=== PATIENT | male | born 1940 | race Hispanic/Latino ===

== ENCOUNTER 2019-07-09 12:33 | Inpatient (IN) | payer MEDICARE ==
[2019-07-09] MEDS ORDERED: ASPIRIN 325 MG TAB PO ONE (12:53)
--- NOTE | 2019-07-09 12:58 | Event Note ---
ED Screening Note Date of service: 07/09/19 Time: 12:53 ED Screening Note: 78 y/o male comes in by referral by Dr. Gatica. reports that he has been having SOB and has been afib. Patient was recently in ICU. This initial assessment/diagnostic orders/clinical plan/treatment(s) is/are subj ect to change based on patients health status, clinical progression and re- assessment by fellow clinical providers in the ED. Further treatment and workup at subsequent clinical providers discretion. Patient/guardian urged not to elope from the ED as their condition may be serious if not clinically assessed and managed. Initial orders include: Patient is herrera lips are purple patient is in SVT
[2019-07-09] MEDS ORDERED: dilTIAZem 25 MG/5 ML INJ IV ONE ×2 (13:07→13:41)
[2019-07-09] MEDS ORDERED: dilTIAZem 50 MG/10 ML INJ IV ONE ×2 (13:30→15:00)
--- NOTE | 2019-07-09 13:30 | XRay Report ---
CHEST 1 VIEW INDICATION: Chest Pain. COMPARISON: 04/24/2019 FINDINGS: Support devices: None. Heart: Stable mild cardiomegaly. Lungs/Pleura: No acute air space or interstitial disease. Additional findings: None. IMPRESSION: Stable chest. Signer Name: Dayne Jones MD Signed: 07/09/2019 1:26 PM Workstation Name: [id number]
[2019-07-09 13:34] LABS: Basophils % (Auto) 0.3 % (0.0-1.8); Hematocrit 47.7 % (35.5-45.6); Hemoglobin 15.9 gm/dl (11.8-15.2); Lymphocytes # (Auto) 0.7 K/mm3 (1.2-5.4); Lymphocytes % (Auto) 5.2 % (13.4-35.0); Mean Corpuscular HGB Conc 33 % (32-34); Mean Corpuscular Volume 96 fl (84-94); Monocytes # (Auto) 0.7 K/mm3 (0.0-0.8); Monocytes % (Auto) 5.2 % (0.0-7.3); Platelet Count 181 K/mm3 (140-440); Red Blood Count 4.97 M/mm3 (3.65-5.03)
[2019-07-09 13:48] LABS: Partial Thromboplastin Time 33.2 Sec. (24.2-36.6)
[2019-07-09 13:55] LABS: INR 5.04 (0.87-1.13)
[2019-07-09 13:57] LABS: Calcium 9.5 mg/dL (8.4-10.2)
[2019-07-09] MEDS ORDERED: dilTIAZem/D5W 100 MG/100 ML BAG IV SCH (14:00)
[2019-07-09 14:05] LABS: Free T4 (Free Thyroxine) 1.52 ng/dL (0.76-1.46)
--- NOTE | 2019-07-09 14:27 | Emergency Department Report ---
ED Palpitations HPI - General Chief Complaint: Arrhythmia/Palpitations Stated Complaint: AFIB Time Seen by Provider: 07/09/19 13:06 Source: patient Mode of arrival: Wheelchair Limitations: No Limitations - History of Present Illness Initial Comments: 78-year-old male with a past medical history of CHF, atrial fibrillation, pulmonary embolism, DVT, hypertension, CKD, hyperlipidemia, [place] filter placement, currently on Coumadin presents to the hospital with complaints of shortness of breath and palpitations. 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 Patient was found to be in A. fib with RVR rate 151 and was sent to the ER for evaluation. Patient has been compliant with his medications. He states he has been having chronic intermittent shortness of breath and palpitations since discharge from the hospital in April. He denies chest pain, fever, or calf tenderness. Patient has chronic leg edema that is also unchanged. Patient denies orthopnea or PND however, difficulty sleeping last night due to persistent dry cough. Patient was reports that he has intermittent wheezing due to "allergies" and takes an inhaler as needed but denies history of asthma or COPD. Media Clerk: Dr. Anthony with [facility] - Related Data Home Medications Medication Instructions Recorded Confirmed Last Taken AtorvaSTATin [Lipitor] 40 mg PO QHS 04/25/19 07/09/19 Unknown Warfarin [Coumadin] 5 mg PO QDAY 04/25/19 07/09/19 Unknown Bumetanide [Bumex 1 mg tab] 2 mg PO BID 07/09/19 07/09/19 Unknown Cetirizine HCl [ZyrTEC 10mg cap] 10 mg PO QDAY 07/09/19 07/09/19 Unknown Cholecalciferol (Vitamin D3) 5,000 unit PO 1XW 07/09/19 07/09/19 Unknown [Vitamin D3] Metoprolol [Lopressor TAB] 50 mg PO QHS 07/09/19 07/09/19 Unknown Tiotropium [place] [Spiriva] 18 mcg IH DAILY 07/09/19 07/09/19 Unknown predniSONE [Deltasone] 30 mg PO QDAY 07/09/19 07/09/19 Unknown Previous Rx's Medication Instructions Recorded Last Taken Type Metoprolol Xl [Toprol Xl] 100 mg PO BID #60 tablet 05/02/19 Unknown Rx Allergies Allergy/AdvReac Type Severity Reaction Status Date / Time No Known Allergies Allergy Unverified 04/10/19 15:48 ED Review of Systems ROS: Stated complaint: AFIB Other details as noted in HPI ED Past Medical Hx - Past Medical History Previous Medical History?: Yes Hx Hypertension: Yes Hx Heart Attack/AMI: No Hx Congestive Heart Failure: Yes Hx Diabetes: No Hx Deep Vein Thrombosis: Yes Hx Pulmonary Embolism: Yes Hx GERD: No Hx Liver Disease: No Hx Renal Disease: No Hx Arthritis: Yes (hands) Hx Headaches / Migraines: No Hx Kidney Stones: No Hx Asthma: No Hx COPD: No Hx Tuberculosis: No Hx HIV: No Additional medical history: CKD, hyperlipidemia, A-fib - Surgical History Past Surgical History?: Yes Hx Coronary Stent: No Hx Open Heart Surgery: No Hx Pacemaker: No Hx Internal Defibrillator: No Hx Cholecystectomy: No Hx Appendectomy: No Hx Breast Surgery: No Additional Surgical History: [place] filter - Social History Smoking Status: Former Smoker - Medications Home Medications: Home Medications Medication Instructions Recorded Confirmed Last Taken Type AtorvaSTATin [Lipitor] 40 mg PO QHS 04/25/19 07/09/19 Unknown History Warfarin [Coumadin] 5 mg PO QDAY 04/25/19 07/09/19 Unknown History Metoprolol Xl [Toprol Xl] 100 mg PO BID #60 tablet 05/02/19 07/09/19 Unknown Rx Bumetanide [Bumex 1 mg tab] 2 mg PO BID 07/09/19 07/09/19 Unknown History Cetirizine HCl [ZyrTEC 10mg cap] 10 mg PO QDAY 07/09/19 07/09/19 Unknown History Cholecalciferol (Vitamin D3) 5,000 unit PO 1XW 07/09/19 07/09/19 Unknown History [Vitamin D3] Metoprolol [Lopressor TAB] 50 mg PO QHS 07/09/19 07/09/19 Unknown History Tiotropium [place] [Spiriva] 18 mcg IH DAILY 07/09/19 07/09/19 Unknown History predniSONE [Deltasone] 30 mg PO QDAY 07/09/19 07/09/19 Unknown History ED Physical Exam - General Limitations: No Limitations ED Course Vital Signs 07/09/19 07/09/19 07/09/19 12:42 13:05 13:28 Temperature 97.5 F L 98.2 F Pulse Rate 46 L 102 H 159 H Respiratory 24 17 Rate Blood Pressure 134/104 Blood Pressure 129/86 [Right] O2 Sat by Pulse 93 87 99 Oximetry 07/09/19 07/09/19 07/09/19 13:32 13:37 14:00 Temperature Pulse Rate 162 H 132 H 128 H Respiratory 21 Rate Blood Pressure 153/100 131/98 122/78 Blood Pressure [Right] O2 Sat by Pulse 94 Oximetry 07/09/19 07/09/19 07/09/19 14:20 15:00 16:00 Temperature Pulse Rate 140 H 127 H 140 H Respiratory 19 15 Rate Blood Pressure 116/71 105/79 131/104 Blood Pressure [Right] O2 Sat by Pulse 98 96 Oximetry - Consultations Consultation #1: 07/09/19 14:37 Taylor Crisostomo with [facility] in ed to eval pt. Consultation #2: 07/09/19 15:23 Dr Kelley came to ed, rec to d/c cardizem and start amiodarone bolus followed by rich ED Medical Decision Making - Lab Data Result diagrams: 07/09/19 13:30 07/09/19 12:53 Lab Results 07/09/19 07/09/19 07/09/19 Range/Units 12:53 13:05 13:05 WBC (4.5-11.0) K/mm3 RBC (3.65-5.03) M/mm3 Hgb (11.8-15.2) gm/dl Hct (35.5-45.6) % MCV (84-94) fl MCH (28-32) pg MCHC (32-34) % RDW (13.2-15.2) % Plt Count (140-440) K/mm3 Lymph % (Auto) (13.4-35.0) % [place] % (Auto) (0.0-7.3) % Eos % (Auto) (0.0-4.3) % Baso % (Auto) (0.0-1.8) % Lymph # (1.2-5.4) K/mm3 [place] # (0.0-0.8) K/mm3 Eos # (0.0-0.4) K/mm3 Baso # (0.0-0.1) K/mm3 Seg Neutrophils % (40.0-70.0) % Seg Neutrophils # (1.8-7.7) K/mm3 PT (12.2-14.9) Sec. INR (0.87-1.13) APTT (24.2-36.6) Sec. Sodium 143 (137-145) mmol/L Potassium 3.5 L (3.6-5.0) mmol/L Chloride 99.8 (98-107) mmol/L Carbon Dioxide 23 (22-30) mmol/L Anion Gap 24 mmol/L BUN 53 H (9-20) mg/dL Creatinine 2.3 H (0.8-1.5) mg/dL Estimated GFR 28 ml/min BUN/Creatinine Ratio 23 % Glucose 107 H (75-100) mg/dL Calcium 9.5 (8.4-10.2) mg/dL Magnesium 2.20 (1.7-2.3) mg/dL Troponin T 0.014 (0.00-0.029) ng/mL NT-Pro-B Natriuret Pep 9770 H (0-900) pg/mL TSH 5.390 H (0.270-4.200) mlU/mL Free T4 1.52 H (0.76-1.46) ng/dL 07/09/19 07/09/19 Range/Units 13:30 13:30 WBC 13.1 H (4.5-11.0) K/mm3 RBC 4.97 (3.65-5.03) M/mm3 Hgb 15.9 H (11.8-15.2) gm/dl Hct 47.7 H (35.5-45.6) % MCV 96 H (84-94) fl MCH 32 (28-32) pg MCHC 33 (32-34) % RDW 16.0 H (13.2-15.2) % Plt Count 181 (140-440) K/mm3 Lymph % (Auto) 5.2 L (13.4-35.0) % [place] % (Auto) 5.2 (0.0-7.3) % Eos % (Auto) 0.0 (0.0-4.3) % Baso % (Auto) 0.3 (0.0-1.8) % Lymph # 0.7 L (1.2-5.4) K/mm3 [place] # 0.7 (0.0-0.8) K/mm3 Eos # 0.0 (0.0-0.4) K/mm3 Baso # 0.0 (0.0-0.1) K/mm3 Seg Neutrophils % 89.3 H (40.0-70.0) % Seg Neutrophils # 11.7 H (1.8-7.7) K/mm3 PT 48.0 H (12.2-14.9) Sec. INR 5.04 H* (0.87-1.13) APTT 33.2 (24.2-36.6) Sec. Sodium (137-145) mmol/L Potassium (3.6-5.0) mmol/L Chloride (98-107) mmol/L Carbon Dioxide (22-30) mmol/L Anion Gap mmol/L BUN (9-20) mg/dL Creatinine (0.8-1.5) mg/dL Estimated GFR ml/min BUN/Creatinine Ratio % Glucose (75-100) mg/dL Calcium (8.4-10.2) mg/dL Magnesium (1.7-2.3) mg/dL Troponin T (0.00-0.029) ng/mL NT-Pro-B Natriuret Pep (0-900) pg/mL TSH (0.270-4.200) mlU/mL Free T4 (0.76-1.46) ng/dL - EKG Data -: EKG Interpreted by Me (svt) EKG shows normal: ST-T waves (no stemi) Rate: tachycardia (145) - Radiology Data Radiology results: report reviewed CHEST 1 VIEW INDICATION: Chest Pain. COMPARISON: 04/24/2019 FINDINGS: Support devices: None. Heart: Stable mild cardiomegaly. Lungs/Pleura: No acute air space or interstitial disease. Additional findings: None. IMPRESSION: Stable chest. - Medical Decision Making Patient presents to the hospital with A. fib with RVR and shortness of breath. Chest x-ray read as negative but possibility of pulmonary congestion. Karis Crisostomo came to the ED to evaluate patient. Patient has a supratherapeutic INR level. Hospitalist informed for admission as per jerad Cherry d/maikel since not effective and amiodarone started instead - Differential Diagnosis SVT, A. fib, arrhythmia, thyroid disease, anemia Critical Care Time: Yes Critical care time in (mins) excluding proc time.: 35 Critical care attestation.: If time is entered above; I have spent that time in minutes in the direct care of this critically ill patient, excluding procedure time. ED Disposition Clinical Impression: Atrial fibrillation with RVR, Supratherapeutic INR, Presence of IVC filter, SOB (shortness of breath) Disposition: OP ADMIT IP TO THIS HOSP Is pt being admited?: Yes Condition: Stable Time of Disposition: 14:38 (Dr Curran/hosp)
--- NOTE | 2019-07-09 14:43 | Consultation ---
History of Present Illness Consult date: 07/09/19 Requesting physician: TERRIE ANAND Consult reason: atrial fibrillation History of present illness: The pt is a 78 YO male with a past medical history of persistent atrial fibrillation, DVT and PE, IVC filter in place, anticoagulated with Coumadin, BLE edema, CVI, HTN, HLP, CKD (followed by Dr. Aly), suspected COPD (followed by Dr. Fermin), obesity, ongoing tobacco use. He is followed in our office by Dr. Pena. He presented to our office today and was seen by Dr. Gatica. He c/o dyspnea and was found to be in rapid atrial fibrillation and thus was referred to ED for further eval/management. Following arrival to ED, pt noted to be in AFib with HR 140s - 150s. He was initiated on cardizem gtt. Of note, pt was discharged from [facility] on 05/02/2019 following eval/management of new onset atrial fibrillation. He was discharged home on Cardizem CD 300mg daily, amio 200mg BID, lopressor 100mg BID, lasix 40mg daily, Coumadin. He states that for approx 4 weeks following discharge, he felt great. At a follow u p appt in our office in 05/2019, he was noted to have AFib with SVR. Cardizem and amio were discontinued and lopressor dosage was reduced. Since May, pt reports that he has been experiencing progressively worsening SOB, FISCHER and intermittent palpitations. 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 Fermin, last week for "seasonal allergies" and was given some inhalers. His symptoms did not improve with the inhalers. Pt denies any occurrence of chest pain, n/v, diaphoresis, dizziness or syncope. Echo done 04/2019 showed EF 50-55%, mild to mod LVH. Past History Past Medical History: other (as per HPI) Medications and Allergies Allergies Allergy/AdvReac Type Severity Reaction Status Date / Time No Known Allergies Allergy Unverified 04/10/19 15:48 Home Medications Medication Instructions Recorded Confirmed Last Taken Type AtorvaSTATin [Lipitor] 40 mg PO QHS 04/25/19 04/25/19 Unknown History Warfarin [Coumadin] 5 mg PO QDAY 04/25/19 04/25/19 Unknown History Amiodarone [Cordarone 200 MG TAB] 200 mg PO BID #60 tablet 05/02/19 Unknown Rx Enoxaparin Sodium [Lovenox] 120 mg SQ BID #14 syringe 05/02/19 Unknown Rx Furosemide [Lasix TAB] 40 mg PO DAILY #60 tablet 05/02/19 Unknown Rx Metoprolol Xl [Toprol Xl] 100 mg PO BID #60 tablet 05/02/19 Unknown Rx dilTIAZem CD [Cardizem Cd] 300 mg PO QDAY #30 cap 05/02/19 Unknown Rx Active Meds: Active Medications Diltiazem HCl (Cardizem) 25 mg IV ONCE ONE Stop: 07/09/19 15:01 Diltiazem HCl (Cardizem/D5w 100mg/100ml) 100 mg in 100 mls @ 5 mls/hr IV TITR MARIE; Protocol Last Admin: 07/09/19 14:20 Dose: 5 mg/hr, 5 mls/hr Documented by: Review of Systems Constitutional: no fever, no chills, no sweats Ears, nose, mouth and throat: no ear pain, no nose pain, no sinus pressure, no sinus pain Cardiovascular: palpitations, shortness of breath, dyspnea on exertion, no chest pain, no orthopnea, no rapid/irregular heart beat, no edema, no syncope, no lightheadedness, no leg edema Respiratory: shortness of breath, dyspnea on exertion, no cough, no congestion, no wheezing, no pain on inspiration Gastrointestinal: no abdominal pain, no nausea, no vomiting, no diarrhea, no constipation, no change in bowel habits Genitourinary Male: no dysuria, no hematuria, no flank pain, no discharge, no urinary frequency, no urinary hesitancy Musculoskeletal: no neck stiffness, no neck pain, no shooting arm pain, no arm numbness/tingling, no low back pain, no shooting leg pain Integumentary: no rash, no pruritis, no redness, no sores, no wounds Neurological: no head injury, no paralysis, no weakness, no parathesias, no numbness, no tingling, no seizures, no syncope Psychiatric: no anxiety Endocrine: no cold intolerance, no heat intolerance Hematologic/Lymphatic: no easy bruising, no easy bleeding Physical Examination Vital Signs Temp Pulse Resp BP Pulse Ox 98.2 F 102 H 24 129/86 87 07/09/19 13:05 07/09/19 13:05 07/09/19 13:05 07/09/19 13:05 07/09/19 13:05 General appearance: no acute distress HEENT: Positive: PERRL, Normocephaly, Mucus Membranes Moist Neck: Positive: neck supple, trachea midline Cardiac: Positive: irregularly irregular, S1/S2, Tachycardia Lungs: Positive: Decreased Breath Sounds, Rales (bibasilar) Neuro: Positive: Grossly Intact Abdomen: Negative: Tender Skin: Negative: Rash Musculoskeletal: No Pain Extremities: Absent: edema Results 07/09/19 13:30 07/09/19 12:53 Coagulation 07/09/19 Range/Units 13:30 PT 48.0 H (12.2-14.9) Sec. INR 5.04 H* (0.87-1.13) APTT 33.2 (24.2-36.6) Sec. CBC 07/09/19 Range/Units 13:30 WBC 13.1 H (4.5-11.0) K/mm3 RBC 4.97 (3.65-5.03) M/mm3 Hgb 15.9 H (11.8-15.2) gm/dl Hct 47.7 H (35.5-45.6) % Plt Count 181 (140-440) K/mm3 Lymph # 0.7 L (1.2-5.4) K/mm3 [place] # 0.7 (0.0-0.8) K/mm3 Eos # 0.0 (0.0-0.4) K/mm3 Baso # 0.0 (0.0-0.1) K/mm3 Comprehensive Metabolic Panel 07/09/19 Range/Units 12:53 Sodium 143 (137-145) mmol/L Potassium 3.5 L (3.6-5.0) mmol/L Chloride 99.8 (98-107) mmol/L Carbon Dioxide 23 (22-30) mmol/L BUN 53 H (9-20) mg/dL Creatinine 2.3 H (0.8-1.5) mg/dL Glucose 107 H (75-100) mg/dL Calcium 9.5 (8.4-10.2) mg/dL - Imaging and Cardiology Echo: report reviewed (04/2019 showed EF 50-55%, mild to mod LVH. ) EKG: report reviewed, image reviewed EKG interpretations - Telemetry EKG Rhythm: Atrial Fibrillation - EKG Supraventricular dysrhythmia: atrial fibrillation Assessment and Plan Persistent atrial fibrillation with RVR Optimize HR - d/c cardizem gtt and initiate IV amio. Resume home lopressor. Hold home coumadin given supratherapeutic INR and plan to resume for target INR 2-3. Acute heart failure with preserved ejection fraction Echo done 04/2019 showed EF 50-55%, mild to mod LVH. Initiate cautious IV diuresis. Monitor renal indices. Supratherapeutic INR INR 5.04 on admission. No s/s bleeding. Pt denies any recent abx use. Repeat INR. Hold coumadin and plan to resume for target INR 2-3. Leukocytosis Afebrile. Pt denies any recent PO steroid use. Obtain blood cultures. 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 Followed by Dr. Aly. Serum Cr appears to be at baseline. History of DVT / History of pulmonary embolism Anticoagulated with coumadin. S/p IVC filter. Hold coumadin and plan to resume for target INR 2-3. HTN Stable. Resume home lopressor. Hyperlipidemia Resume home statin. ? COPD / Tobacco use Followed by Dr. Fermin. Elevated TSH Further eval/management per primary. The patient has been seen in conjunction with Dr. Grier who agrees with the assessment and plan of care.
--- NOTE | 2019-07-09 15:03 | History and Physical Report ---
History of Present Illness Chief complaint: I am short of breath and my heart is beating fast History of present illness: 78 YO Male with HTN, DVT/PE S/P IVC Filter Placement, Atrial Fib on Therapeutic Anticoagulation, CKD 3, Obesity, HLD presents to ED for evaluation. Patient states that he has experienced shortness of breath and chest palpitations over the past 1 day with persistently worsening symptoms over the same timeframe. 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 Patient instructed to seek further care at [facility]. Patient transported to [facility] for further evaluation and care. Patient seen and evaluated in the emergency department. Lab and imaging studies reviewed. Patient acknowledges dyspnea on exertion as well as dyspnea at rest. Patient found to have atrial fibrillation with rapid ventricular response and was treated with Cardizem drip. Cardiology consult placed in the emergency department. Patient admitted to telemetry and treated with rate control as per cardiology team. Patient denies fever, chills, chest pain, syncope, productive cough, trauma, skin rash, productive cough, known ill contacts. Prior admission on 04/24/2019 reviewed. All medication listed at time of admission has been reconciled. Advanced care planning conducted in ED. Past History Past Medical History: atrial fib, hypertension, hyperlipidemia, other (as per HPI) Past Surgical History: Other ([place] filter placement) Social history: , lives with family. denies: smoking, alcohol abuse, prescription drug abuse Family history: CAD, hypertension Medications and Allergies Allergies Allergy/AdvReac Type Severity Reaction Status Date / Time No Known Allergies Allergy Unverified 04/10/19 15:48 Home Medications Medication Instructions Recorded Confirmed Last Taken Type AtorvaSTATin [Lipitor] 40 mg PO QHS 04/25/19 04/25/19 Unknown History Warfarin [Coumadin] 5 mg PO QDAY 04/25/19 04/25/19 Unknown History Amiodarone [Cordarone 200 MG TAB] 200 mg PO BID #60 tablet 05/02/19 Unknown Rx Enoxaparin Sodium [Lovenox] 120 mg SQ BID #14 syringe 05/02/19 Unknown Rx Furosemide [Lasix TAB] 40 mg PO DAILY #60 tablet 05/02/19 Unknown Rx Metoprolol Xl [Toprol Xl] 100 mg PO BID #60 tablet 01/24/20 Unknown Rx dilTIAZem CD [Cardizem Cd] 300 mg PO QDAY #30 cap 05/02/19 Unknown Rx Active Meds: Active Medications Diltiazem HCl (Cardizem/D5w 100mg/100ml) 100 mg in 100 mls @ 5 mls/hr IV TITR MARIE; Protocol Last Admin: 07/09/19 14:20 Dose: 5 mg/hr, 5 mls/hr Documented by: Review of Systems Constitutional: no weight loss, no weight gain, no fever, no chills, no malaise, no lethargy Ears, nose, mouth and throat: no ear pain, no ear discharge, no tinnitis, no decreased hearing, no nose pain, no nasal congestion Cardiovascular: palpitations, shortness of breath, dyspnea on exertion, decreased exercise tolerance, no chest pain, no edema, no syncope, no paroxysmal nocturnal dyspnea Respiratory: no cough, no cough with sputum, no excessive sputum Gastrointestinal: no abdominal pain, no nausea, no vomiting, no diarrhea Genitourinary Male: no hematuria, no flank pain, no discharge, no urinary frequency, no urinary hesitancy Rectal: no pain, no incontinence, no bleeding Musculoskeletal: no neck stiffness, no neck pain, no shooting arm pain, no arm numbness/tingling, no low back pain Integumentary: no rash, no pruritis, no redness, no sores, no wounds Neurological: no transient paralysis, no paralysis, no weakness, no parathesias, no numbness Psychiatric: no anxiety, no memory loss, no change in sleep habits, no sleep disturbances, no insomnia, no hypersomnia Endocrine: no cold intolerance, no heat intolerance, no polyphagia, no excessive thirst, no polydipsia, no polyuria Hematologic/Lymphatic: no easy bruising, no easy bleeding, no lymphadenopathy, no lymphedema Allergic/Immunologic: no urticaria, no allergic rhinitis, no wheezing, no persistent infections, no anaphylaxis Exam - Constitutional Vitals: Temp Pulse Resp BP Pulse Ox 98.2 F 140 H 24 116/71 87 07/09/19 13:05 07/09/19 14:20 07/09/19 13:05 07/09/19 14:20 07/09/19 13:05 General appearance: Present: mild distress - EENT Eyes: Present: PERRL ENT: hearing intact, clear oral mucosa - Neck Neck: Present: supple, normal ROM - Respiratory Respiratory effort: normal Respiratory: bilateral: CTA - Cardiovascular Rhythm: other (Tachycardia) Heart Sounds: Present: S1 & S2. Absent: rub, click - Extremities Extremities: pulses symmetrical, No edema Peripheral Pulses: within normal limits - Abdominal General gastrointestinal: Present: soft, non-tender, non-distended, normal bowel sounds Male genitourinary: Present: normal - Integumentary Integumentary: Present: clear, warm, dry - Musculoskeletal Musculoskeletal: gait normal, strength equal bilaterally - Psychiatric Psychiatric: appropriate mood/affect, intact judgment & insight - Neurologic Neurologic: CNII-XII intact, moves all extremities Results - Labs CBC & Chem 7: 07/09/19 13:30 07/09/19 12:53 Labs: Abnormal lab results 07/09/19 07/09/19 07/09/19 Range/Units 12:53 13:05 13:05 WBC (4.5-11.0) K/mm3 Hgb (11.8-15.2) gm/dl Hct (35.5-45.6) % MCV (84-94) fl RDW (13.2-15.2) % Lymph % (Auto) (13.4-35.0) % Lymph # (1.2-5.4) K/mm3 Seg Neutrophils % (40.0-70.0) % Seg Neutrophils # (1.8-7.7) K/mm3 PT (12.2-14.9) Sec. INR (0.87-1.13) Potassium 3.5 L (3.6-5.0) mmol/L BUN 53 H (9-20) mg/dL Creatinine 2.3 H (0.8-1.5) mg/dL Glucose 107 H (75-100) mg/dL NT-Pro-B Natriuret Pep 9770 H (0-900) pg/mL TSH 5.390 H (0.270-4.200) mlU/mL Free T4 1.52 H (0.76-1.46) ng/dL 07/09/19 07/09/19 Range/Units 13:30 13:30 WBC 13.1 H (4.5-11.0) K/mm3 Hgb 15.9 H (11.8-15.2) gm/dl Hct 47.7 H (35.5-45.6) % MCV 96 H (84-94) fl RDW 16.0 H (13.2-15.2) % Lymph % (Auto) 5.2 L (13.4-35.0) % Lymph # 0.7 L (1.2-5.4) K/mm3 Seg Neutrophils % 89.3 H (40.0-70.0) % Seg Neutrophils # 11.7 H (1.8-7.7) K/mm3 PT 48.0 H (12.2-14.9) Sec. INR 5.04 H* (0.87-1.13) Potassium (3.6-5.0) mmol/L BUN (9-20) mg/dL Creatinine (0.8-1.5) mg/dL Glucose (75-100) mg/dL NT-Pro-B Natriuret Pep (0-900) pg/mL TSH (0.270-4.200) mlU/mL Free T4 (0.76-1.46) ng/dL Assessment and Plan - Patient Problems (1) Atrial fibrillation with RVR Current Visit: Yes Status: Acute Plan to address problem: Cardiology team consulted in ED, rate control as per cardiology team, amiodarone drip as per cardiology team, admit to telemetry, thyroid panel, (2) Acute kidney injury Current Visit: Yes Status: Acute Plan to address problem: Monitor urine output every shift, urine electrolytes, nephrology consulted (3) Supratherapeutic INR Current Visit: Yes Status: Acute Plan to address problem: Continue therapeutic anticoagulation as per clinically indicated, pharmacy consulted for Coumadin management. (4) Hypertension Current Visit: Yes Status: Acute Qualifiers: Hypertension type: essential hypertension Qualified Code(s): I10 - Essential (primary) hypertension Plan to address problem: Monitor blood pressure every shift, continue medical management. (5) Hyperlipidemia Current Visit: Yes Status: Acute Qualifiers: Hyperlipidemia type: mixed hyperlipidemia Qualified Code(s): E78.2 - Mixed hyperlipidemia Plan to address problem: Low-fat diet, low-cholesterol diet, risk factor reduction, statin therapy, (6) DVT prophylaxis Current Visit: Yes Status: Acute Plan to address problem: SCD bilateral lower extremities while in bed, continue therapeutic anticoagulation. (7) Advance care planning Current Visit: Yes Status: Acute Plan to address problem: Patient is full code, disease education conducted, patient acknowledges understanding and agreement with care plan, +30 minutes.
[2019-07-09] MEDS ORDERED: FUROSEMIDE 20 MG/2 ML INJ IV ONE (15:10)
[2019-07-09 15:55] LABS: INR 4.67 (0.87-1.13)
[2019-07-09] MEDS ORDERED: AMIODARONE 150 MG in DEXTROSE 5% IN WATER 97 ML IV ONE (16:00)
[2019-07-09] MEDS: AMIODARONE 900 MG in DEXTROSE 5% IN WATER 482 ML IV SCH (16:23)
[2019-07-09] MEDS ORDERED: ONDANSETRON 4 MG/2 ML INJ IV PRN (16:41)
[2019-07-09] MEDS ORDERED: ACETAMINOPHEN 325 MG TAB PO PRN (16:41)
[2019-07-09] MEDS ORDERED: METOPROLOL TARTRATE 50 MG TAB PO SCH (22:00)
[2019-07-10 05:34] LABS: Calcium 9.1 mg/dL (8.4-10.2)
--- NOTE | 2019-07-10 09:57 | Progress Note ---
Assessment and Plan Persistent atrial fibrillation with RVR Optimize HR - cont IV amio and increase PO lopressor to 100mg BID. F/u LFTs in AM. Anticoagulated with coumadin. Tx INR 2-3. Acute heart failure with preserved ejection fraction Improving. S/p IV lasix x 1 dose yesterday. Resume home PO lasix 40mg daily. Monitor renal indices. Echo done 04/2019 showed EF 50-55%, mild to mod LVH. Supratherapeutic INR INR 5.04 on admission. Coumadin held. F/u INR today. Leukocytosis Afebrile. CXR no apparent infectious process. Pt denies any recent PO steroid use. Blood cultures pending. 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 Followed by Dr. Aly. Monitor renal indices. History of DVT / History of pulmonary embolism Anticoagulated with coumadin. S/p IVC filter. HTN Stable. Cont lopressor. Hyperlipidemia Cont statin. ? COPD / Tobacco use Followed by Dr. Fermin. Elevated TSH Further eval/management per primary. The patient has been seen in conjunction with Dr. Grier who agrees with the assessment and plan of care. Subjective Date of service: 07/10/19 Principal diagnosis: AFib RVR Interval history: pt resting in bed, states he is feeling better today, SOB improved. tele reviewed - in AFib HR 110 - 130s overnight. Objective Last Vital Signs Temp 97.4 F L 07/10/19 08:50 Pulse 88 07/10/19 08:50 Resp 18 07/10/19 08:50 BP 138/89 07/10/19 08:50 Pulse Ox 95 07/10/19 08:50 - Physical Examination General: No Apparent Distress HEENT: Positive: PERRL, Normocephaly, Mucus Membranes Moist Neck: Positive: neck supple, trachea midline Cardiac: Positive: irregularly irregular, S1/S2, Tachycardia Lungs: Positive: Decreased Breath Sounds Neuro: Positive: Grossly Intact Abdomen: Negative: Tender Skin: Negative: Rash Musculoskeletal: No Pain Extremities: Absent: edema - Labs and Meds Coagulation 07/09/19 07/09/19 Range/Units 13:30 15:30 PT 48.0 H 45.2 H (12.2-14.9) Sec. INR 5.04 H* 4.67 H (0.87-1.13) APTT 33.2 (24.2-36.6) Sec. CBC 07/09/19 Range/Units 13:30 WBC 13.1 H (4.5-11.0) K/mm3 RBC 4.97 (3.65-5.03) M/mm3 Hgb 15.9 H (11.8-15.2) gm/dl Hct 47.7 H (35.5-45.6) % Plt Count 181 (140-440) K/mm3 Lymph # 0.7 L (1.2-5.4) K/mm3 [place] # 0.7 (0.0-0.8) K/mm3 Eos # 0.0 (0.0-0.4) K/mm3 Baso # 0.0 (0.0-0.1) K/mm3 Comprehensive Metabolic Panel 07/09/19 07/10/19 Range/Units 12:53 04:41 Sodium 143 140 (137-145) mmol/L Potassium 3.5 L 3.9 (3.6-5.0) mmol/L Chloride 99.8 102.1 (98-107) mmol/L Carbon Dioxide 23 22 (22-30) mmol/L BUN 53 H 61 H (9-20) mg/dL Creatinine 2.3 H 2.8 H (0.8-1.5) mg/dL Glucose 107 H 124 H (75-100) mg/dL Calcium 9.5 9.1 (8.4-10.2) mg/dL - Imaging and Cardiology EKG: report reviewed, image reviewed Echo: report reviewed (04/2019 showed EF 50-55%, mild to mod LVH. ) - Telemetry EKG Rhythm: Atrial Fibrillation
[2019-07-10] MEDS ORDERED: METOPROLOL TARTRATE 50 MG TAB PO SCH ×2 (10:00→22:00)
[2019-07-10] MEDS: AMIODARONE 900 MG in DEXTROSE 5% IN WATER 482 ML IV SCH (10:57)
[2019-07-10] MEDS: FUROSEMIDE 40 MG TAB PO SCH (11:09)
[2019-07-10 13:36] LABS: INR 5.1 (0.87-1.13)
[2019-07-10] MEDS: AMIODARONE 200 MG TAB PO SCH (15:36)
[2019-07-10] MEDS ORDERED: METOPROLOL TARTRATE 5 MG/5 ML INJ IV ONE (22:00)
[2019-07-11] MEDS ORDERED: dilTIAZem 25 MG/5 ML INJ IV ONE (06:41)
[2019-07-11] MEDS ORDERED: METOPROLOL TARTRATE 50 MG TAB PO ONE (07:00)
[2019-07-11 07:58] LABS: Albumin 3.3 g/dL (3.9-5); Calcium 8.8 mg/dL (8.4-10.2)
--- NOTE | 2019-07-11 09:26 | Progress Note ---
Assessment and Plan Persistent atrial fibrillation with RVR Optimize HR - cont IV amio and PO amio 200mg daily. cont PO lopressor 100mg BID. F/u LFTs in AM. Anticoagulated with coumadin. Tx INR 2-3. Acute heart failure with preserved ejection fraction Improved. Cont home PO lasix 40mg daily. Monitor renal indices. Echo done 04/2019 showed EF 50-55%, mild to mod LVH. Transaminitis Normal LFTs in 04/2019. Pt receiving amiodarone. Hold home statin. F/u LFTs in AM. Supratherapeutic INR INR 5.04 on admission. Coumadin held. F/u INR. Leukocytosis Afebrile. CXR no apparent infectious process. Pt denies any recent PO steroid use. Blood cultures NGTD. 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 Followed by Dr. Aly. Monitor renal indices. History of DVT / History of pulmonary embolism Anticoagulated with coumadin. S/p IVC filter. HTN Stable. Cont lopressor. Hyperlipidemia Hold home statin in setting of elevated LFTs. ? COPD / Tobacco use Followed by Dr. Fermin. Elevated TSH Further eval/management per primary - consider initiation of synthroid. The patient has been seen in conjunction with Dr. Grier who agrees with the assessment and plan of care. Subjective Date of service: 07/11/19 Principal diagnosis: AFib RVR Interval history: pt sitting up at bedside, feeling ok, SOB improved. tele reviewed - in AFib HR 130s overnight. amio gtt infusing. Objective Last Vital Signs Temp 98.0 F 07/11/19 07:20 Pulse 130 H 07/11/19 07:12 Resp 18 07/11/19 07:20 BP 138/99 07/11/19 07:20 Pulse Ox 93 07/11/19 03:15 - Physical Examination General: No Apparent Distress HEENT: Positive: PERRL, Normocephaly, Mucus Membranes Moist Neck: Positive: neck supple, trachea midline Cardiac: Positive: irregularly irregular, S1/S2, Tachycardia Lungs: Positive: Decreased Breath Sounds Neuro: Positive: Grossly Intact Abdomen: Negative: Tender Skin: Negative: Rash Musculoskeletal: No Pain Extremities: Absent: edema - Labs and Meds Cardiac Enzymes 07/11/19 Range/Units 07:20 AST 151 H (5-40) units/L Coagulation 07/10/19 Range/Units 11:48 PT 48.5 H (12.2-14.9) Sec. INR 5.10 H* (0.87-1.13) Comprehensive Metabolic Panel 07/11/19 Range/Units 07:20 Sodium 139 (137-145) mmol/L Potassium 3.2 L (3.6-5.0) mmol/L Chloride 98.4 (98-107) mmol/L Carbon Dioxide 24 (22-30) mmol/L BUN 52 H (9-20) mg/dL Creatinine 2.2 H (0.8-1.5) mg/dL Glucose 147 H (75-100) mg/dL Calcium 8.8 (8.4-10.2) mg/dL AST 151 H (5-40) units/L ALT 378 H (7-56) units/L Alkaline Phosphatase 332 H (35-129) units/L Total Protein 5.5 L (6.3-8.2) g/dL Albumin 3.3 L (3.9-5) g/dL - Imaging and Cardiology EKG: report reviewed, image reviewed Echo: report reviewed (04/2019 showed EF 50-55%, mild to mod LVH. ) - Telemetry EKG Rhythm: Atrial Fibrillation
[2019-07-11] MEDS: AMIODARONE 200 MG TAB PO SCH (09:59)
[2019-07-11] MEDS: predniSONE 10 MG TAB PO SCH (09:59)
[2019-07-11] MEDS: FUROSEMIDE 40 MG TAB PO SCH (10:00)
[2019-07-11] MEDS ORDERED: METOPROLOL TARTRATE 100 MG TAB PO SCH (10:00)
--- NOTE | 2019-07-11 10:08 | Progress Note ---
Assessment and Plan - Patient Problems (1) Atrial fibrillation with RVR Current Visit: Yes Status: Acute Plan to address problem: On amiodarone (2) Hypertension Current Visit: Yes Status: Chronic Qualifiers: Hypertension type: essential hypertension Qualified Code(s): I10 - Essential (primary) hypertension Plan to address problem: Continue antihypertensives (3) COPD (chronic obstructive pulmonary disease) Current Visit: Yes Status: Chronic Plan to address problem: Continue Spiriva (4) Hyperlipidemia Current Visit: Yes Status: Chronic Qualifiers: Hyperlipidemia type: mixed hyperlipidemia Qualified Code(s): E78.2 - Mixed hyperlipidemia Plan to address problem: Continue statins (5) Vitamin D deficiency Current Visit: Yes Status: Chronic Plan to address problem: Continue vitamin D (6) DVT prophylaxis Current Visit: Yes Status: Acute Plan to address problem: Heparin subcu and GI prophylaxis. (7) Sick-euthyroid syndrome Current Visit: Yes Status: Acute Plan to address problem: TSH and T4 are high which is inconsistent with hypothyroidism or hyperthyroidism We will get the full thyroid profile Subjective Date of service: 07/10/19 Principal diagnosis: AFib RVR Interval history: Admitted for A. fib with RVR, hypertension, hyperlipidemia and anticoagulation Continues to have palpitations Objective - Constitutional Vitals: Vital Signs - 12hr 07/10/19 07/11/19 07/11/19 23:20 03:15 04:52 Temperature 97.7 F 97.9 F Pulse Rate 131 H 55 L 130 H Respiratory 18 18 Rate Blood Pressure 158/89 130/92 O2 Sat by Pulse 94 93 Oximetry 07/11/19 07/11/19 07/11/19 07:12 07:20 09:41 Temperature 98.0 F Pulse Rate 130 H 130 H Respiratory 18 Rate Blood Pressure 138/99 O2 Sat by Pulse Oximetry General appearance: Present: no acute distress, well-nourished - EENT Eyes: PERRL, EOM intact ENT: hearing intact, clear oral mucosa Ears: bilateral: normal - Neck Neck: supple, normal ROM - Respiratory Respiratory effort: normal Respiratory: bilateral: CTA - Breasts Breasts: normal - Cardiovascular Heart rate: 110 Rhythm: irregularly irregular Heart Sounds: Present: S1 & S2. Absent: gallop, rub Extremities: pulses intact, No edema, normal color, Full ROM - Gastrointestinal General gastrointestinal: Present: soft, non-tender, non-distended, normal bowel sounds - Genitourinary Male genitourinary: normal - Integumentary Integumentary: clear, warm, dry - Musculoskeletal Musculoskeletal: 1, strength equal bilaterally - Neurologic Neurologic: moves all extremities - Psychiatric Psychiatric: memory intact, appropriate mood/affect, intact judgment & insight - Labs CBC & Chem 7: 07/12/19 04:32 07/12/19 04:32 Labs: Abnormal lab results 07/10/19 07/11/19 Range/Units 11:48 07:20 PT 48.5 H (12.2-14.9) Sec. INR 5.10 H* (0.87-1.13) Potassium 3.2 L (3.6-5.0) mmol/L BUN 52 H (9-20) mg/dL Creatinine 2.2 H (0.8-1.5) mg/dL Glucose 147 H (75-100) mg/dL Total Bilirubin 1.80 H (0.1-1.2) mg/dL AST 151 H (5-40) units/L ALT 378 H (7-56) units/L Alkaline Phosphatase 332 H (35-129) units/L Total Protein 5.5 L (6.3-8.2) g/dL Albumin 3.3 L (3.9-5) g/dL
[2019-07-11 10:57] LABS: INR 3.68 (0.87-1.13)
[2019-07-11] MEDS: METOPROLOL TARTRATE 100 MG TAB PO SCH ×2 (14:40→20:05)
[2019-07-11] MEDS: AMIODARONE 900 MG in DEXTROSE 5% IN WATER 482 ML IV SCH (23:12)
[2019-07-12 05:02] LABS: Hematocrit 46.7 % (35.5-45.6); Hemoglobin 15.5 gm/dl (11.8-15.2); Mean Corpuscular HGB Conc 33 % (32-34); Mean Corpuscular Volume 96 fl (84-94); Platelet Count 130 K/mm3 (140-440); Red Blood Count 4.87 M/mm3 (3.65-5.03); Red Cell Distribution Width 15.9 % (13.2-15.2)
[2019-07-12 05:24] LABS: Calcium 8.9 mg/dL (8.4-10.2)
[2019-07-12 05:25] LABS: Albumin 3.2 g/dL (3.9-5)
--- NOTE | 2019-07-12 09:36 | Progress Note ---
Assessment and Plan Persistent atrial fibrillation with RVR In view of patient heart rate not being controlled with IV amiodarone and oral will DC and start Cardizem IV and oral Cardizem along with Lopressor 100 mg 3 times a day. If patient fails medical treatment may have to consider AV fani ablation Acute heart failure with preserved ejection fraction Improved. Cont home PO lasix 40mg daily. Monitor renal indices. Echo done 04/2019 showed EF 50-55%, mild to mod LVH. Transaminitis Normal LFTs in 04/2019. Pt receiving amiodarone, now d/c . Hold home statin. F/u LFTs in AM. Supratherapeutic INR INR 5.04 on admission. Coumadin held. F/u INR. Leukocytosis Afebrile. CXR no apparent infectious process. Pt denies any recent PO steroid use. Blood cultures NGTD. 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 Followed by Dr. Aly. Monitor renal indices. History of DVT / History of pulmonary embolism Anticoagulated with coumadin. S/p IVC filter. HTN Stable. Cont lopressor. Hyperlipidemia Hold home statin in setting of elevated LFTs. ? COPD / Tobacco use Followed by Dr. Fermin. Elevated TSH Further eval/management per primary - consider initiation of synthroid. Spoke with patient and patient's in detail about cardiac plan Subjective Date of service: 07/12/19 Principal diagnosis: AFib RVR Interval history: sob is better but heart rate elevated Objective Vital Signs Temp Pulse Resp BP Pulse Ox 07/12/19 08:10 97.8 F 131 H 20 118/90 93 07/12/19 07:29 125 H 22 119/94 93 07/12/19 04:16 97.5 F L 131 H 18 169/121 92 07/12/19 01:00 120 H 07/11/19 23:19 97.9 F 125 H 18 131/97 91 07/11/19 21:52 95 07/11/19 20:05 139 H 131/72 07/11/19 19:32 98.0 F 139 H 18 131/72 95 07/11/19 16:36 98.3 F 69 18 145/104 90 07/11/19 12:25 97.8 F 18 146/97 07/11/19 09:41 130 H - Physical Examination General: No Apparent Distress HEENT: Positive: PERRL, Normocephaly, Mucus Membranes Moist Neck: Positive: neck supple, trachea midline Cardiac: Positive: Tachycardia Lungs: Positive: clear to auscultation Neuro: Positive: Grossly Intact Abdomen: Negative: Tender Skin: Negative: Rash Musculoskeletal: No Pain Extremities: Absent: edema - Labs and Meds Cardiac Enzymes 07/12/19 Range/Units 04:32 AST 91 H (5-40) units/L Coagulation 07/11/19 Range/Units 10:33 PT 37.4 H (12.2-14.9) Sec. INR 3.68 H (0.87-1.13) CBC 07/12/19 Range/Units 04:32 WBC 12.1 H (4.5-11.0) K/mm3 RBC 4.87 (3.65-5.03) M/mm3 Hgb 15.5 H (11.8-15.2) gm/dl Hct 46.7 H (35.5-45.6) % Plt Count 130 L (140-440) K/mm3 Comprehensive Metabolic Panel 07/12/19 Range/Units 04:32 Sodium 140 (137-145) mmol/L Potassium 3.2 L (3.6-5.0) mmol/L Chloride 102.0 (98-107) mmol/L Carbon Dioxide 20 L (22-30) mmol/L BUN 46 H (9-20) mg/dL Creatinine 1.8 H (0.8-1.5) mg/dL Glucose 112 H (75-100) mg/dL Calcium 8.9 (8.4-10.2) mg/dL AST 91 H (5-40) units/L ALT 319 H (7-56) units/L Alkaline Phosphatase 313 H (35-129) units/L Total Protein 5.7 L (6.3-8.2) g/dL Albumin 3.2 L (3.9-5) g/dL - Imaging and Cardiology EKG: report reviewed, image reviewed Echo: report reviewed (04/2019 showed EF 50-55%, mild to mod LVH. ) - Telemetry EKG Rhythm: Atrial Fibrillation (range 130-150)
[2019-07-12] MEDS ORDERED: dilTIAZem 25 MG/5 ML INJ IV ONE ×2 (10:15→11:00)
[2019-07-12] MEDS: FUROSEMIDE 40 MG TAB PO SCH ×2 (10:38→10:57)
[2019-07-12] MEDS: predniSONE 10 MG TAB PO SCH (10:38)
[2019-07-12] MEDS: METOPROLOL TARTRATE 100 MG TAB PO SCH ×2 (11:08→14:35)
[2019-07-12] MEDS: dilTIAZem/D5W 100 MG/100 ML BAG IV SCH ×2 (12:13→20:38)
[2019-07-12] MEDS: dilTIAZem 60 MG TAB PO SCH ×2 (12:23→18:23)
--- NOTE | 2019-07-12 16:48 | Progress Note ---
Assessment and Plan - Patient Problems (1) Hyperthyroidism Current Visit: Yes Status: Acute (2) Atrial fibrillation with RVR Current Visit: Yes Status: Acute (3) DVT prophylaxis Current Visit: Yes Status: Acute Hospitalist Physical - Constitutional Vitals: Temp Pulse Resp BP Pulse Ox 97.9 F 121 H 18 144/90 91 07/12/19 15:44 07/12/19 15:44 07/12/19 15:44 07/12/19 15:44 07/12/19 15:44 General appearance: Present: mild distress Results - Labs CBC & Chem 7: 07/12/19 04:32 07/12/19 04:32 Labs: Laboratory Last Values WBC 12.1 K/mm3 (4.5-11.0) H 07/12/19 04:32 RBC 4.87 M/mm3 (3.65-5.03) 07/12/19 04:32 Hgb 15.5 gm/dl (11.8-15.2) H 07/12/19 04:32 Hct 46.7 % (35.5-45.6) H 07/12/19 04:32 MCV 96 fl (84-94) H 07/12/19 04:32 MCH 32 pg (28-32) 07/12/19 04:32 MCHC 33 % (32-34) 07/12/19 04:32 RDW 15.9 % (13.2-15.2) H 07/12/19 04:32 Plt Count 130 K/mm3 (140-440) L 07/12/19 04:32 Lymph % (Auto) 5.2 % (13.4-35.0) L 07/09/19 13:30 [place] % (Auto) 5.2 % (0.0-7.3) 07/09/19 13:30 Eos % (Auto) 0.0 % (0.0-4.3) 07/09/19 13:30 Baso % (Auto) 0.3 % (0.0-1.8) 07/09/19 13:30 Lymph # 0.7 K/mm3 (1.2-5.4) L 07/09/19 13:30 [place] # 0.7 K/mm3 (0.0-0.8) 07/09/19 13:30 Eos # 0.0 K/mm3 (0.0-0.4) 07/09/19 13:30 Baso # 0.0 K/mm3 (0.0-0.1) 07/09/19 13:30 Seg Neutrophils % 89.3 % (40.0-70.0) H 07/09/19 13:30 Seg Neutrophils # 11.7 K/mm3 (1.8-7.7) H 07/09/19 13:30 PT 37.4 Sec. (12.2-14.9) H 07/11/19 10:33 INR 3.68 (0.87-1.13) H 07/11/19 10:33 APTT 33.2 Sec. (24.2-36.6) 07/09/19 13:30 Sodium 140 mmol/L (137-145) 07/12/19 04:32 Potassium 3.2 mmol/L (3.6-5.0) L 07/12/19 04:32 Chloride 102.0 mmol/L (98-107) 07/12/19 04:32 Carbon Dioxide 20 mmol/L (22-30) L 07/12/19 04:32 Anion Gap 21 mmol/L 07/12/19 04:32 BUN 46 mg/dL (9-20) H 07/12/19 04:32 Creatinine 1.8 mg/dL (0.8-1.5) H 07/12/19 04:32 Estimated GFR 37 ml/min 07/12/19 04:32 BUN/Creatinine Ratio 26 % 07/12/19 04:32 Glucose 112 mg/dL (75-100) H 07/12/19 04:32 Calcium 8.9 mg/dL (8.4-10.2) 07/12/19 04:32 Magnesium 2.20 mg/dL (1.7-2.3) 07/09/19 13:05 Total Bilirubin 1.30 mg/dL (0.1-1.2) H 07/12/19 04:32 AST 91 units/L (5-40) H 07/12/19 04:32 ALT 319 units/L (7-56) H 07/12/19 04:32 Alkaline Phosphatase 313 units/L (35-129) H 07/12/19 04:32 Troponin T 0.015 ng/mL (0.00-0.029) 07/09/19 19:53 NT-Pro-B Natriuret Pep 9770 pg/mL (0-900) H 07/09/19 13:05 Total Protein 5.7 g/dL (6.3-8.2) L 07/12/19 04:32 Albumin 3.2 g/dL (3.9-5) L 07/12/19 04:32 Albumin/Globulin Ratio 1.3 % 07/12/19 04:32 TSH 5.390 mlU/mL (0.270-4.200) H 07/09/19 13:05 Free T4 1.52 ng/dL (0.76-1.46) H 07/09/19 13:05 Microbiology: Microbiology 07/09/19 15:30 Peripheral/Venous Blood Culture - Preliminary NO GROWTH AFTER 48 HOURS 07/09/19 15:30 Peripheral/Venous Blood Culture - Preliminary NO GROWTH AFTER 48 HOURS [place]/IV: Voiding Method Toilet IV Catheter Type [Left Forearm INT / Saline Lock ] IV Catheter Type [Right Wrist] Peripheral IV IV Catheter Type [Right INT / Saline Lock Antecubital] Active Medications - Current Medications Current Medications: Generic Name Dose Route Start Last Admin Trade Name Freq PRN Reason Stop Dose Admin Acetaminophen 650 mg 07/09/19 16:41 Tylenol PO Q4H PRN Pain MILD(1-3)/Fever >100.5/PALACIO Diltiazem HCl 60 mg 07/12/19 12:00 07/12/19 12:23 Cardizem PO 60 mg Q6HR MARIE Administration Furosemide 40 mg 07/10/19 11:00 07/12/19 10:57 Lasix PO Not Given QDAY MARIE Diltiazem HCl 100 mg in 100 mls @ 10 mls/hr 07/12/19 10:00 07/12/19 12:13 Cardizem/D5w 100mg/100ml IV 10 mg/hr TITR MARIE 10 mls/hr Administration Protocol 10 MG/HR Metoprolol Tartrate 100 mg 07/11/19 14:00 07/12/19 14:35 Metoprolol PO 100 mg TID MARIE Administration Ondansetron HCl 4 mg 07/09/19 16:41 Zofran IV Q8H PRN Nausea And Vomiting Prednisone 30 mg 07/11/19 10:00 07/12/19 10:38 Deltasone PO 07/14/19 09:00 30 mg QDAY MARIE Administration Sodium Chloride 10 ml 07/09/19 22:00 07/12/19 11:21 Sodium Chloride Flush Syringe 10 Ml IV Not Given BID MARIE Sodium Chloride 10 ml 07/09/19 16:41 07/10/19 11:12 Sodium Chloride Flush Syringe 10 Ml IV 10 ml PRN PRN Administration LINE FLUSH
--- NOTE | 2019-07-12 16:49 | Progress Note ---
Assessment and Plan - Patient Problems (1) Atrial fibrillation with RVR Current Visit: Yes Status: Acute Plan to address problem: Patient started on IV Cardizem and oral Cardizem along with Lopressor 100 mg every 8 hours. Appreciate cardiology input. If patient fails medical treatment patient may have to get AV fani ablation. EPS consult done. In view of patient heart rate not being controlled with IV amiodarone and oral will DC and start Cardizem IV and oral Cardizem along with Lopressor 100 mg 3 times a day. If patient fails medical treatment may have to consider AV fani ablation (2) Hyperthyroidism Current Visit: Yes Status: Acute Plan to address problem: Methimazole started. (3) COPD (chronic obstructive pulmonary disease) Current Visit: Yes Status: Chronic Plan to address problem: Continue Spiriva (4) Hyperlipidemia Current Visit: Yes Status: Chronic Qualifiers: Hyperlipidemia type: mixed hyperlipidemia Qualified Code(s): E78.2 - Mixed hyperlipidemia Plan to address problem: Continue statins (5) Vitamin D deficiency Current Visit: Yes Status: Chronic Plan to address problem: Continue vitamin D (6) Anticoagulation goal of INR 2.0 to 2.5 Current Visit: Yes Status: Chronic Plan to address problem: Continue Coumadin and maintain INR between 2 and 3 (7) CHF (congestive heart failure) Current Visit: Yes Status: Chronic Qualifiers: Heart failure type: combined systolic and diastolic Plan to address problem: Continue diuretics (8) DVT prophylaxis Current Visit: Yes Status: Acute Plan to address problem: Heparin subcu and GI prophylaxis. Subjective Date of service: 07/12/19 Principal diagnosis: AFib RVR Objective - Constitutional Vitals: Vital Signs - 12hr 07/12/19 07/12/19 07/12/19 07:29 08:10 09:51 Temperature 97.8 F Pulse Rate 125 H 131 H 125 H Respiratory 22 20 Rate Blood Pressure 119/94 118/90 O2 Sat by Pulse 93 93 Oximetry 07/12/19 07/12/19 07/12/19 11:08 11:34 12:21 Temperature 97.5 F L Pulse Rate 125 H 128 H 120 H Respiratory 18 Rate Blood Pressure 100/90 138/84 118/90 O2 Sat by Pulse 95 Oximetry 07/12/19 15:44 Temperature 97.9 F Pulse Rate 121 H Respiratory 18 Rate Blood Pressure 144/90 O2 Sat by Pulse 91 Oximetry - Labs CBC & Chem 7: 07/12/19 04:32 07/12/19 04:32 Labs: Abnormal lab results 07/12/19 07/12/19 Range/Units 04:32 04:32 WBC 12.1 H (4.5-11.0) K/mm3 Hgb 15.5 H (11.8-15.2) gm/dl Hct 46.7 H (35.5-45.6) % MCV 96 H (84-94) fl RDW 15.9 H (13.2-15.2) % Plt Count 130 L (140-440) K/mm3 Potassium 3.2 L (3.6-5.0) mmol/L Carbon Dioxide 20 L (22-30) mmol/L BUN 46 H (9-20) mg/dL Creatinine 1.8 H (0.8-1.5) mg/dL Glucose 112 H (75-100) mg/dL Total Bilirubin 1.30 H (0.1-1.2) mg/dL AST 91 H (5-40) units/L ALT 319 H (7-56) units/L Alkaline Phosphatase 313 H (35-129) units/L Total Protein 5.7 L (6.3-8.2) g/dL Albumin 3.2 L (3.9-5) g/dL
[2019-07-12] MEDS ORDERED: NON-FORMULARY EACH (Cetirizine Hcl [Zyrtec 10mg Cap] 10 MG) PO SCH (17:00)
[2019-07-12] MEDS ORDERED: TIOTROPIUM 18 MCG CAP INHALATION IH SCH (17:00)
[2019-07-12] MEDS ORDERED: WARFARIN 5 MG TAB PO SCH (17:00)
--- NOTE | 2019-07-12 17:02 | Progress Note ---
Assessment and Plan - Patient Problems (1) Atrial fibrillation with RVR Current Visit: Yes Status: Acute Plan to address problem: On amiodarone (2) Hypertension Current Visit: Yes Status: Chronic Qualifiers: Hypertension type: essential hypertension Qualified Code(s): I10 - Essential (primary) hypertension Plan to address problem: Continue antihypertensives (3) COPD (chronic obstructive pulmonary disease) Current Visit: Yes Status: Chronic Plan to address problem: Continue Spiriva (4) Hyperlipidemia Current Visit: Yes Status: Chronic Qualifiers: Hyperlipidemia type: mixed hyperlipidemia Qualified Code(s): E78.2 - Mixed hyperlipidemia Plan to address problem: Continue statins (5) Vitamin D deficiency Current Visit: Yes Status: Chronic Plan to address problem: Continue vitamin D (6) Sick-euthyroid syndrome Current Visit: Yes Status: Acute Plan to address problem: TSH and T4 are high which is inconsistent with hypothyroidism or hyperthyroidism We will get the full thyroid profile (7) DVT prophylaxis Current Visit: Yes Status: Acute Plan to address problem: Heparin subcu and GI prophylaxis. Subjective Date of service: 07/11/19 Principal diagnosis: AFib RVR Interval history: Admitted for A. fib with RVR, hypertension, hyperlipidemia and anticoagulation Continues to have palpitations Objective - Constitutional Vitals: Vital Signs - 12hr 07/12/19 07/12/19 07/12/19 07:29 08:10 09:51 Temperature 97.8 F Pulse Rate 125 H 131 H 125 H Respiratory 22 20 Rate Blood Pressure 119/94 118/90 O2 Sat by Pulse 93 93 Oximetry 07/12/19 07/12/19 07/12/19 11:08 11:34 12:21 Temperature 97.5 F L Pulse Rate 125 H 128 H 120 H Respiratory 18 Rate Blood Pressure 100/90 138/84 118/90 O2 Sat by Pulse 95 Oximetry 07/12/19 15:44 Temperature 97.9 F Pulse Rate 121 H Respiratory 18 Rate Blood Pressure 144/90 O2 Sat by Pulse 91 Oximetry General appearance: Present: no acute distress, well-nourished - EENT Eyes: PERRL, EOM intact ENT: hearing intact, clear oral mucosa Ears: bilateral: normal - Neck Neck: supple, normal ROM - Respiratory Respiratory effort: normal Respiratory: bilateral: CTA - Breasts Breasts: normal - Cardiovascular Heart rate: 109 Rhythm: irregularly irregular Heart Sounds: Present: S1 & S2. Absent: gallop, rub Extremities: pulses intact, No edema, normal color, Full ROM - Gastrointestinal General gastrointestinal: Present: soft, non-tender, non-distended, normal bowel sounds - Genitourinary Male genitourinary: normal - Integumentary Integumentary: clear, warm, dry - Musculoskeletal Musculoskeletal: 1, strength equal bilaterally - Neurologic Neurologic: moves all extremities - Psychiatric Psychiatric: memory intact, appropriate mood/affect, intact judgment & insight - Labs CBC & Chem 7: 07/12/19 04:32 07/12/19 04:32 Labs: Abnormal lab results 07/12/19 07/12/19 Range/Units 04:32 04:32 WBC 12.1 H (4.5-11.0) K/mm3 Hgb 15.5 H (11.8-15.2) gm/dl Hct 46.7 H (35.5-45.6) % MCV 96 H (84-94) fl RDW 15.9 H (13.2-15.2) % Plt Count 130 L (140-440) K/mm3 Potassium 3.2 L (3.6-5.0) mmol/L Carbon Dioxide 20 L (22-30) mmol/L BUN 46 H (9-20) mg/dL Creatinine 1.8 H (0.8-1.5) mg/dL Glucose 112 H (75-100) mg/dL Total Bilirubin 1.30 H (0.1-1.2) mg/dL AST 91 H (5-40) units/L ALT 319 H (7-56) units/L Alkaline Phosphatase 313 H (35-129) units/L Total Protein 5.7 L (6.3-8.2) g/dL Albumin 3.2 L (3.9-5) g/dL
[2019-07-12] MEDS: predniSONE 20 MG TAB PO SCH (18:22)
[2019-07-12] MEDS: IPRATROPIUM 0.02% NEBU 2.5 ML IH SCH (20:35)
[2019-07-12] MEDS ORDERED: BUMETANIDE 1 MG TAB PO SCH (22:00)
[2019-07-12] MEDS ORDERED: METOPROLOL TARTRATE 50 MG TAB PO SCH (22:00)
[2019-07-12] MEDS ORDERED: METOPROLOL SUCCINATE XL 100 MG TAB PO SCH (22:00)
[2019-07-13] MEDS: dilTIAZem 60 MG TAB PO SCH ×3 (02:17→15:49)
[2019-07-13 05:05] LABS: Hematocrit 43.6 % (35.5-45.6); Hemoglobin 14.5 gm/dl (11.8-15.2); Mean Corpuscular HGB Conc 33 % (32-34); Mean Corpuscular Volume 96 fl (84-94); Platelet Count 125 K/mm3 (140-440); Red Blood Count 4.54 M/mm3 (3.65-5.03); Red Cell Distribution Width 16.2 % (13.2-15.2)
[2019-07-13 05:28] LABS: Albumin 3.3 g/dL (3.9-5); Calcium 8.4 mg/dL (8.4-10.2); INR 1.64 (0.87-1.13)
[2019-07-13 06:24] LABS: Basophils % (Manual) 0 % (0.0-1.8); Eosinophils % (Manual) 0 % (0.0-4.3); Total Cells Counted 100
[2019-07-13 06:25] LABS: Burr Cells 1+; Platelet Estimate Consistent w Auto; Poikilocytosis 1+
[2019-07-13] MEDS: dilTIAZem/D5W 100 MG/100 ML BAG IV SCH ×2 (06:45→22:06)
[2019-07-13] MEDS ORDERED: POTASSIUM CHLORIDE ER 20 MEQ TAB PO NR (08:29)
--- NOTE | 2019-07-13 09:45 | Progress Note ---
Assessment and Plan Persistent atrial fibrillation with RVR In view of patient heart rate not being controlled with IV amiodarone and oral will DC and start Cardizem IV and oral Cardizem along with Lopressor 100 mg 3 times a day. If patient fails medical treatment may have to consider AV fani ablation patient's heart rate has mildly improved increase Cardizem to 90 mg 4 times a day we will stop the drip in a.m. if patient can maintain heart rate in the low 100s may consider discharge for outpatient IV pacemaker with AV fani ablation Acute heart failure with preserved ejection fraction Improved. Cont home PO lasix 40mg daily. Monitor renal indices. Echo done 04/2019 showed EF 50-55%, mild to mod LVH. Transaminitis Normal LFTs in 04/2019. Pt receiving amiodarone, now d/c . Hold home statin. F/u LFTs in AM. Supratherapeutic INR resolved INR 5.04 on admission. Coumadin held. F/u INR. Leukocytosis Afebrile. CXR no apparent infectious process. Pt denies any recent PO steroid use. Blood cultures NGTD. 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 Followed by Dr. Aly. Monitor renal indices. History of DVT / History of pulmonary embolism Anticoagulated with coumadin. S/p IVC filter. HTN Stable. Cont lopressor. Hyperlipidemia Hold home statin in setting of elevated LFTs. ? COPD / Tobacco use Followed by Dr. Fermin. Elevated TSH Further eval/management per primary - consider initiation of synthroid. Spoke with patient and patient's in detail about cardiac plan Subjective Date of service: 07/13/19 Principal diagnosis: AFib RVR Interval history: Sitting in the bed without issue Objective Vital Signs Temp Pulse Pulse Pulse Resp Resp Resp 07/13/19 08:15 97.8 F 134 H 18 07/13/19 06:45 121 H 07/13/19 04:32 97.9 F 121 H 20 07/13/19 02:17 121 H 07/13/19 00:10 97.7 F 121 H 20 07/12/19 21:24 116 H 07/12/19 21:01 121 H 07/12/19 20:35 90 95 H 20 18 07/12/19 19:45 97.4 F L 102 H 22 07/12/19 15:44 97.9 F 121 H 18 07/12/19 12:21 120 H 07/12/19 11:34 97.5 F L 128 H 18 07/12/19 11:08 125 H 07/12/19 10:00 07/12/19 09:51 125 H BP Pulse Ox 07/13/19 08:15 117/72 95 07/13/19 06:45 135/84 07/13/19 04:32 117/63 90 07/13/19 02:17 135/84 07/13/19 00:10 135/84 93 07/12/19 21:24 07/12/19 21:01 144/90 07/12/19 20:35 96 07/12/19 19:45 136/88 93 07/12/19 15:44 144/90 91 07/12/19 12:21 118/90 07/12/19 11:34 138/84 95 07/12/19 11:08 100/90 07/12/19 10:00 95 07/12/19 09:51 - Physical Examination General: No Apparent Distress HEENT: Positive: PERRL, Normocephaly, Mucus Membranes Moist Neck: Positive: neck supple, trachea midline Cardiac: Positive: Irregularly Regular, Tachycardia Lungs: Positive: clear to auscultation Neuro: Positive: Grossly Intact Abdomen: Negative: Tender Skin: Negative: Rash Musculoskeletal: No Pain Extremities: Absent: edema - Labs and Meds Cardiac Enzymes 07/13/19 Range/Units 03:37 AST 54 H (5-40) units/L Coagulation 07/13/19 Range/Units 03:37 PT 19.7 H (12.2-14.9) Sec. INR 1.64 H (0.87-1.13) CBC 07/13/19 Range/Units 03:37 WBC 11.6 H (4.5-11.0) K/mm3 RBC 4.54 (3.65-5.03) M/mm3 Hgb 14.5 (11.8-15.2) gm/dl Hct 43.6 (35.5-45.6) % Plt Count 125 L (140-440) K/mm3 Comprehensive Metabolic Panel 07/13/19 Range/Units 03:37 Sodium 142 (137-145) mmol/L Potassium 3.2 L (3.6-5.0) mmol/L Chloride 103.3 (98-107) mmol/L Carbon Dioxide 22 (22-30) mmol/L BUN 51 H (9-20) mg/dL Creatinine 1.8 H (0.8-1.5) mg/dL Glucose 131 H (75-100) mg/dL Calcium 8.4 (8.4-10.2) mg/dL AST 54 H (5-40) units/L ALT 240 H (7-56) units/L Alkaline Phosphatase 266 H (35-129) units/L Total Protein 4.9 L (6.3-8.2) g/dL Albumin 3.3 L (3.9-5) g/dL - Imaging and Cardiology EKG: report reviewed, image reviewed Echo: report reviewed (04/2019 showed EF 50-55%, mild to mod LVH. ) - Telemetry EKG Rhythm: Atrial Fibrillation (Average heart rate 110-120s)
[2019-07-13] MEDS: IPRATROPIUM 0.02% NEBU 2.5 ML IH SCH ×3 (09:59→22:06)
[2019-07-13] MEDS: predniSONE 20 MG TAB PO SCH (10:48)
[2019-07-13] MEDS: CETIRIZINE 10 MG TAB PO SCH (10:48)
[2019-07-13] MEDS: BUMETANIDE 1 MG TAB PO SCH (10:48)
[2019-07-13] MEDS: METOPROLOL TARTRATE 100 MG TAB PO SCH ×2 (15:48→21:42)
--- NOTE | 2019-07-13 16:19 | Progress Note ---
Assessment and Plan - Patient Problems (1) Atrial fibrillation with RVR Current Visit: Yes Status: Acute Plan to address problem: On Cardizem drip Metoprolol added 100 mg 3 times a day Cardizem drip till a.m. Changed to p.o. Cardizem If heart rate in the low 100s we will discharge the patient for outpatient AV fani ablation versus defibrillator. Cardiology follow-up appreciated (2) Hypertension Current Visit: Yes Status: Chronic Qualifiers: Hypertension type: essential hypertension Qualified Code(s): I10 - Essential (primary) hypertension Plan to address problem: Continue antihypertensives (3) COPD (chronic obstructive pulmonary disease) Current Visit: Yes Status: Chronic Plan to address problem: Continue Spiriva (4) Hyperlipidemia Current Visit: Yes Status: Chronic Qualifiers: Hyperlipidemia type: mixed hyperlipidemia Qualified Code(s): E78.2 - Mixed hyperlipidemia Plan to address problem: Continue statins (5) Vitamin D deficiency Current Visit: Yes Status: Chronic Plan to address problem: Continue vitamin D (6) Sick-euthyroid syndrome Current Visit: Yes Status: Acute Plan to address problem: TSH and T4 are high which is inconsistent with hypothyroidism or hyperthyroidism thyroid profile reordered and was normal Thyroid panel normal No levothyroxine or methimazole (7) Transaminitis Current Visit: Yes Status: Acute Plan to address problem: Check acute hepatitis profile Stop statins which may be causing the transaminitis (8) DVT prophylaxis Current Visit: Yes Status: Acute Plan to address problem: Heparin subcu and GI prophylaxis. Subjective Date of service: 07/13/19 Principal diagnosis: AFib RVR Interval history: Admitted for A. fib with RVR, hypertension, hyperlipidemia and anticoagulation Patient continues to have palpitations Heart rate in 130s to 140s Objective - Constitutional Vitals: Vital Signs - 12hr 07/13/19 07/13/19 07/13/19 04:32 06:45 08:15 Temperature 97.9 F 97.8 F Pulse Rate 121 H 121 H 134 H Pulse Rate [ Anterior Bilateral Throughout] Respiratory 20 18 Rate Respiratory Rate [Anterior Bilateral Throughout] Blood Pressure 117/63 135/84 117/72 O2 Sat by Pulse 90 95 Oximetry 07/13/19 07/13/19 09:59 12:19 Temperature 97.6 F Pulse Rate 84 Pulse Rate [ 118 H Anterior Bilateral Throughout] Respiratory 20 Rate Respiratory 20 Rate [Anterior Bilateral Throughout] Blood Pressure 135/81 O2 Sat by Pulse 95 96 Oximetry General appearance: Present: no acute distress, well-nourished - EENT Eyes: PERRL, EOM intact ENT: hearing intact, clear oral mucosa Ears: bilateral: normal - Neck Neck: supple, normal ROM - Respiratory Respiratory effort: normal Respiratory: bilateral: CTA - Breasts Breasts: normal - Cardiovascular Heart rate: 130 Rhythm: irregularly irregular Heart Sounds: Present: S1 & S2. Absent: gallop, rub Extremities: pulses intact, No edema, normal color, Full ROM - Gastrointestinal General gastrointestinal: Present: soft, non-tender, non-distended, normal bowel sounds - Genitourinary Male genitourinary: normal - Integumentary Integumentary: clear, warm, dry - Musculoskeletal Musculoskeletal: 1, strength equal bilaterally - Neurologic Neurologic: moves all extremities - Psychiatric Psychiatric: memory intact, appropriate mood/affect, intact judgment & insight - Labs CBC & Chem 7: 07/13/19 03:37 07/13/19 03:37 Labs: Abnormal lab results 07/13/19 07/13/19 07/13/19 Range/Units 03:37 03:37 03:37 WBC 11.6 H (4.5-11.0) K/mm3 MCV 96 H (84-94) fl RDW 16.2 H (13.2-15.2) % Plt Count 125 L (140-440) K/mm3 Seg Neuts % (Manual) 92.0 H (40.0-70.0) % Lymphocytes % (Manual) 5.0 L (13.4-35.0) % Seg Neutrophils # Man 10.7 H (1.8-7.7) K/mm3 Lymphocytes # (Manual) 0.6 L (1.2-5.4) K/mm3 PT 19.7 H (12.2-14.9) Sec. INR 1.64 H (0.87-1.13) Potassium 3.2 L (3.6-5.0) mmol/L BUN 51 H (9-20) mg/dL Creatinine 1.8 H (0.8-1.5) mg/dL Glucose 131 H (75-100) mg/dL Total Bilirubin 1.50 H (0.1-1.2) mg/dL AST 54 H (5-40) units/L ALT 240 H (7-56) units/L Alkaline Phosphatase 266 H (35-129) units/L Total Protein 4.9 L (6.3-8.2) g/dL Albumin 3.3 L (3.9-5) g/dL - Imaging and cardiology EKG: report reviewed (Atrial fibrillation with RVR)
[2019-07-13] MEDS ORDERED: WARFARIN 2.5 MG TAB PO SCH (17:00)
[2019-07-13] MEDS ORDERED: WARFARIN NO DOSE TODAY PO ONE (17:00)
[2019-07-14] MEDS: dilTIAZem 60 MG TAB PO SCH ×4 (01:17→18:20)
[2019-07-14] MEDS: IPRATROPIUM 0.02% NEBU 2.5 ML IH SCH ×3 (07:30→20:38)
[2019-07-14 08:00] LABS: Basophils % (Auto) 0.2 % (0.0-1.8); Eosinophils % (Auto) 0.2 % (0.0-4.3); Hematocrit 42.3 % (35.5-45.6); Hemoglobin 14.3 gm/dl (11.8-15.2); Lymphocytes # (Auto) 0.4 K/mm3 (1.2-5.4); Lymphocytes % (Auto) 3.6 % (13.4-35.0); Mean Corpuscular HGB Conc 34 % (32-34); Mean Corpuscular Volume 94 fl (84-94); Monocytes # (Auto) 0.8 K/mm3 (0.0-0.8); Monocytes % (Auto) 6.5 % (0.0-7.3); Platelet Count 136 K/mm3 (140-440); Red Blood Count 4.49 M/mm3 (3.65-5.03); Red Cell Distribution Width 15.6 % (13.2-15.2)
[2019-07-14 08:10] LABS: INR 1.19 (0.87-1.13)
[2019-07-14 08:26] LABS: Calcium 8.6 mg/dL (8.4-10.2)
[2019-07-14] MEDS: METOPROLOL TARTRATE 100 MG TAB PO SCH ×3 (09:43→21:51)
[2019-07-14] MEDS: BUMETANIDE 1 MG TAB PO SCH (09:44)
[2019-07-14] MEDS: CETIRIZINE 10 MG TAB PO SCH (09:44)
[2019-07-14] MEDS: predniSONE 20 MG TAB PO SCH (09:44)
--- NOTE | 2019-07-14 11:08 | Progress Note ---
Assessment and Plan Persistent atrial fibrillation with RVR Unable to optimize HR chemically. Cont lopressor and cardizem. Plan for tx to [facility] on Sunday for AV fani ablation and bi-ventricular pacemaker on at 9:30AM per Dr. Grier. Anticoagulated with coumadin at home. Coumadin held and Heparin gtt initiated as pt is pending procedure. Acute heart failure with preserved ejection fraction Improved. Cont PO bumex. Monitor renal indices. Echo done 04/2019 showed EF 50-55%, mild to mod LVH. Transaminitis Normal LFTs in 04/2019. s/p amiodarone. Hold home statin, hold amio. monitor LFTs. Supratherapeutic INR Improved. Leukocytosis Afebrile. CXR no apparent infectious process. Pt denies any recent PO steroid use. Blood cultures NGTD. 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 Followed by Dr. Aly. Monitor renal indices. History of DVT / History of pulmonary embolism Anticoagulated with coumadin at home. S/p IVC filter. HTN Stable. Cont lopressor and cardizem. Hyperlipidemia Hold home statin in setting of elevated LFTs. ? COPD / Tobacco use Followed by Dr. Fermin. Elevated TSH Further eval/management per primary. Unable to optimize HR chemically. Cont lopressor and cardizem. Plan for tx to [facility] on Sunday for AV fani ablation and bi-ventricular pacemaker on at 9:30AM per Dr. Grier. Coumadin held and Heparin gtt initiated as pt is pending procedure. The patient has been seen in conjunction with Dr. Fabi Anthony who agrees with the assessment and plan of care. Subjective Date of service: 07/14/19 Principal diagnosis: AFib RVR Interval history: pt sitting up at bedside, feeling ok. tele reviewed - in AFib HR 130s overnight. Objective Last Vital Signs Temp 97.6 F 07/14/19 08:10 Pulse 140 H 07/14/19 09:43 Resp 18 07/14/19 08:10 BP 120/81 07/14/19 09:43 Pulse Ox 94 07/14/19 08:10 - Physical Examination General: No Apparent Distress HEENT: Positive: PERRL, Normocephaly, Mucus Membranes Moist Neck: Positive: neck supple, trachea midline Cardiac: Positive: irregularly irregular, S1/S2 Lungs: Positive: Decreased Breath Sounds Neuro: Positive: Grossly Intact Abdomen: Negative: Tender Skin: Negative: Rash Musculoskeletal: No Pain Extremities: Absent: edema - Labs and Meds Cardiac Enzymes 07/14/19 Range/Units 07:11 AST 42 H (5-40) units/L Coagulation 07/14/19 Range/Units 07:11 PT 15.3 H (12.2-14.9) Sec. INR 1.19 H (0.87-1.13) CBC 07/14/19 Range/Units 07:11 WBC 12.1 H (4.5-11.0) K/mm3 RBC 4.49 (3.65-5.03) M/mm3 Hgb 14.3 (11.8-15.2) gm/dl Hct 42.3 (35.5-45.6) % Plt Count 136 L (140-440) K/mm3 Lymph # 0.4 L (1.2-5.4) K/mm3 [place] # 0.8 (0.0-0.8) K/mm3 Eos # 0.0 (0.0-0.4) K/mm3 Baso # 0.0 (0.0-0.1) K/mm3 Comprehensive Metabolic Panel 07/14/19 Range/Units 07:11 Sodium 140 (137-145) mmol/L Potassium 3.1 L (3.6-5.0) mmol/L Chloride 101.7 (98-107) mmol/L Carbon Dioxide 21 L (22-30) mmol/L BUN 47 H (9-20) mg/dL Creatinine 1.7 H (0.8-1.5) mg/dL Glucose 102 H (75-100) mg/dL Calcium 8.6 (8.4-10.2) mg/dL AST 42 H (5-40) units/L ALT 189 H (7-56) units/L Alkaline Phosphatase 229 H (35-129) units/L Total Protein 5.6 L (6.3-8.2) g/dL Albumin 3.0 L (3.9-5) g/dL - Imaging and Cardiology EKG: report reviewed (Atrial fibrillation with RVR) Echo: report reviewed (04/2019 showed EF 50-55%, mild to mod LVH. ) - Telemetry EKG Rhythm: Atrial Fibrillation
[2019-07-14 12:32] LABS: Hematocrit 44.4 % (35.5-45.6); Hemoglobin 14.8 gm/dl (11.8-15.2)
[2019-07-14 12:42] LABS: INR 1.25 (0.87-1.13)
[2019-07-14 12:43] LABS: Partial Thromboplastin Time 25.9 Sec. (24.2-36.6)
[2019-07-14] MEDS: HEPARIN/ 0.45% NACL DRIP 25,000 UNIT/500 ML BAG IV SCH (13:21)
[2019-07-14 13:45] LABS: Hepatitis B Surface Antigen Non-Reactive (Negative); Hepatitis C Virus Antibody Non-Reactive (NonReactive)
--- NOTE | 2019-07-14 14:25 | Progress Note ---
Assessment and Plan - Patient Problems (1) Atrial fibrillation with RVR Current Visit: Yes Status: Acute Plan to address problem: On Cardizem drip Metoprolol added 100 mg 3 times a day Cardizem drip till a.m. Changed to p.o. Cardizem If heart rate in the low 100s we will discharge the patient for outpatient AV fani ablation versus defibrillator. Cardiology follow-up appreciated (2) Acute heart failure with preserved ejection fraction (HFpEF) Current Visit: No Status: Acute Plan to address problem: Acute diastolic heart failure with preserved preserved ejection fraction Diuresis as necessary Patient accepted for transfer on July 15Sunday to [facility] for possible ablation on July [address] Trisha Grier (3) Acute kidney injury Current Visit: Yes Status: Acute Plan to address problem: Secondary to ATN Creatinine was 2.3 on July 08 and 2 0.8 which is improved to 1.7 today ATN is a possibility (4) Hypertension Current Visit: Yes Status: Chronic Qualifiers: Hypertension type: essential hypertension Qualified Code(s): I10 - Essential (primary) hypertension Plan to address problem: Continue antihypertensives (5) COPD (chronic obstructive pulmonary disease) Current Visit: Yes Status: Chronic Plan to address problem: Continue Spiriva (6) Hyperlipidemia Current Visit: Yes Status: Chronic Qualifiers: Hyperlipidemia type: mixed hyperlipidemia Qualified Code(s): E78.2 - Mixed hyperlipidemia Plan to address problem: Continue statins (7) Vitamin D deficiency Current Visit: Yes Status: Chronic Plan to address problem: Continue vitamin D (8) Sick-euthyroid syndrome Current Visit: Yes Status: Acute Plan to address problem: TSH and T4 are high which is inconsistent with hypothyroidism or hyperthyroidism thyroid profile reordered and was normal Thyroid panel normal No levothyroxine or methimazole (9) Transaminitis Current Visit: Yes Status: Acute Plan to address problem: Secondary to possibly statins and amiodarone (10) DVT prophylaxis Current Visit: Yes Status: Acute Plan to address problem: Heparin subcu and GI prophylaxis. Subjective Date of service: 07/14/19 Principal diagnosis: AFib RVR Interval history: Admitted for A. fib with RVR, hypertension, hyperlipidemia and anticoagulation Patient continues to have palpitations Heart rate in 130s to 140s Not responding to Cardizem drip or amiodarone drip Discussed with Sunday Patient to be transferred to [facility] on Sunday so that he can get ablation for the persistent rapid ventricular rate by Dr Karen Grier Objective - Constitutional Vitals: Vital Signs - 12hr 07/14/19 07/14/19 07/14/19 05:18 07:32 08:10 Temperature 97.7 F 97.6 F Pulse Rate 104 H 101 H Pulse Rate [ 113 H Anterior Bilateral Throughout] Respiratory 18 18 Rate Respiratory 20 Rate [Anterior Bilateral Throughout] Blood Pressure 138/88 120/81 O2 Sat by Pulse 94 96 94 Oximetry 07/14/19 07/14/19 07/14/19 09:43 10:00 12:16 Temperature 97.4 F L Pulse Rate 140 H 122 H 117 H Pulse Rate [ Anterior Bilateral Throughout] Respiratory 18 Rate Respiratory Rate [Anterior Bilateral Throughout] Blood Pressure 120/81 125/85 O2 Sat by Pulse 97 Oximetry 07/14/19 07/14/19 13:20 14:20 Temperature Pulse Rate 125 H 112 H Pulse Rate [ Anterior Bilateral Throughout] Respiratory Rate Respiratory Rate [Anterior Bilateral Throughout] Blood Pressure 125/85 137/82 O2 Sat by Pulse Oximetry General appearance: Present: mild distress, well-nourished - EENT Eyes: PERRL, EOM intact ENT: hearing intact, clear oral mucosa Ears: bilateral: normal - Neck Neck: supple, normal ROM - Respiratory Respiratory effort: normal Respiratory: bilateral: CTA - Breasts Breasts: normal - Cardiovascular Heart rate: 130 Rhythm: irregularly irregular Heart Sounds: Present: S1 & S2. Absent: gallop, rub Extremities: no ischemia, pulses intact, No edema, normal color, Full ROM - Gastrointestinal General gastrointestinal: Present: soft, non-tender, non-distended, normal bowel sounds - Genitourinary Male genitourinary: normal - Integumentary Integumentary: clear, warm, dry - Musculoskeletal Musculoskeletal: 1, strength equal bilaterally - Neurologic Neurologic: moves all extremities - Psychiatric Psychiatric: memory intact, appropriate mood/affect, intact judgment & insight - Allied health notes Allied health notes reviewed: nursing, case management - Labs CBC & Chem 7: 07/14/19 11:22 07/14/19 07:11 Labs: Abnormal lab results 07/14/19 07/14/19 07/14/19 Range/Units 07:11 07:11 07:11 WBC 12.1 H (4.5-11.0) K/mm3 RDW 15.6 H (13.2-15.2) % Plt Count 136 L (140-440) K/mm3 Lymph % (Auto) 3.6 L (13.4-35.0) % Lymph # 0.4 L (1.2-5.4) K/mm3 Seg Neutrophils % 89.5 H (40.0-70.0) % Seg Neutrophils # 10.8 H (1.8-7.7) K/mm3 PT 15.3 H (12.2-14.9) Sec. INR 1.19 H (0.87-1.13) Potassium 3.1 L (3.6-5.0) mmol/L Carbon Dioxide 21 L (22-30) mmol/L BUN 47 H (9-20) mg/dL Creatinine 1.7 H (0.8-1.5) mg/dL Glucose 102 H (75-100) mg/dL AST 42 H (5-40) units/L ALT 189 H (7-56) units/L Alkaline Phosphatase 229 H (35-129) units/L Total Protein 5.6 L (6.3-8.2) g/dL Albumin 3.0 L (3.9-5) g/dL 07/14/19 Range/Units 11:22 WBC (4.5-11.0) K/mm3 RDW (13.2-15.2) % Plt Count (140-440) K/mm3 Lymph % (Auto) (13.4-35.0) % Lymph # (1.2-5.4) K/mm3 Seg Neutrophils % (40.0-70.0) % Seg Neutrophils # (1.8-7.7) K/mm3 PT 15.9 H (12.2-14.9) Sec. INR 1.25 H (0.87-1.13) Potassium (3.6-5.0) mmol/L Carbon Dioxide (22-30) mmol/L BUN (9-20) mg/dL Creatinine (0.8-1.5) mg/dL Glucose (75-100) mg/dL AST (5-40) units/L ALT (7-56) units/L Alkaline Phosphatase (35-129) units/L Total Protein (6.3-8.2) g/dL Albumin (3.9-5) g/dL - Imaging and cardiology EKG: report reviewed (Eulalio. fib with RVR heart rate of 1 30-1 40)
[2019-07-15] MEDS: dilTIAZem 60 MG TAB PO SCH (00:53)
[2019-07-15 04:03] LABS: INR 1.32 (0.87-1.13)
[2019-07-15] MEDS: HEPARIN/ 0.45% NACL DRIP 25,000 UNIT/500 ML BAG IV SCH ×2 (06:35→12:10)
--- NOTE | 2019-07-15 10:38 | Progress Note ---
Assessment and Plan Assessment and plan: -- Atrial fibrillation with RVR Current Visit: Yes Status: Acute s/p Cardizem drip,Metoprolol added 100 mg 3 times a day Continue p.o. Cardizem, heparin drip for AV fani ablation at [facility] tomorrow Cardiology following --Acute heart failure with preserved ejection fraction (HFpEF) Current Visit: No Status: Acute Acute diastolic heart failure with preserved preserved ejection fraction Diuresis as necessary, Patient accepted for transfer on July 15Sunday to [facility] for possible ablation on July [address] Trisha Grier -- Acute kidney injury Current Visit: Yes Status: Acute Secondary to ATN, gentle hydration Creatinine levels improving -- Hypertension Current Visit: Yes Status: Chronic Continue antihypertensives --COPD (chronic obstructive pulmonary disease) Current Visit: Yes Status: Chronic Continue Spiriva --Hyperlipidemia Current Visit: Yes Status: Chronic Continue statins --Vitamin D deficiency Current Visit: Yes Status: Chronic Continue vitamin D --Abnormal thyroid function tests; Mild hypothyroidism, patient is on amiodarone Closely monitor TFTs --Transaminitis Current Visit: Yes Status: Acute Trending down probably due to statins and amiodarone Statin and amiodarone held --DVT prophylaxis Current Visit: Yes Status: Acute Possible transfer to [facility] fib ablation Plan of care reviewed with the patient and his nurse Physics Technician recommendations noted and appreciated History Interval history: Patient seen and examined at the bedside this morning Patient's chart, medications, consultants recommendations and tests reviewed Patient feels slightly better, Denies any chest pain or palpitations Cardiology planning to transfer the patient to [facility] fib ablation Vital signs reviewed Hospitalist Physical - Constitutional Vitals: Temp Pulse Resp BP Pulse Ox 97.8 F 84 20 105/66 96 07/15/19 03:59 07/15/19 05:28 07/15/19 03:59 07/15/19 05:28 07/15/19 03:59 General appearance: Present: mild distress, well-nourished, obese - EENT Eyes: Present: PERRL, EOM intact - Neck Neck: Present: supple, normal ROM - Respiratory Respiratory effort: normal Respiratory: bilateral: diminished, negative: rales, rhonchi, wheezing - Cardiovascular Rhythm: regular Heart Sounds: Present: S1 & S2 - Extremities Extremities: no ischemia, No edema - Abdominal General gastrointestinal: soft, non-tender, non-distended, normal bowel sounds - Integumentary Integumentary: Present: clear, warm - Psychiatric Psychiatric: appropriate mood/affect, cooperative - Neurologic Neurologic: moves all extremities Results - Labs CBC & Chem 7: 07/16/19 05:15 07/16/19 05:14 Labs: Laboratory Last Values WBC 12.1 K/mm3 (4.5-11.0) H 07/14/19 07:11 RBC 4.49 M/mm3 (3.65-5.03) 07/14/19 07:11 Hgb 14.8 gm/dl (11.8-15.2) 07/14/19 11:22 Hct 44.4 % (35.5-45.6) 07/14/19 11:22 MCV 94 fl (84-94) 07/14/19 07:11 MCH 32 pg (28-32) 07/14/19 07:11 MCHC 34 % (32-34) 07/14/19 07:11 RDW 15.6 % (13.2-15.2) H 07/14/19 07:11 Plt Count 155 K/mm3 (140-440) 07/14/19 11:22 Lymph % (Auto) 3.6 % (13.4-35.0) L 07/14/19 07:11 [place] % (Auto) 6.5 % (0.0-7.3) 07/14/19 07:11 Eos % (Auto) 0.2 % (0.0-4.3) 07/14/19 07:11 Baso % (Auto) 0.2 % (0.0-1.8) 07/14/19 07:11 Lymph # 0.4 K/mm3 (1.2-5.4) L 07/14/19 07:11 [place] # 0.8 K/mm3 (0.0-0.8) 07/14/19 07:11 Eos # 0.0 K/mm3 (0.0-0.4) 07/14/19 07:11 Baso # 0.0 K/mm3 (0.0-0.1) 07/14/19 07:11 Add Manual Diff Complete 07/13/19 03:37 Total Counted 100 07/13/19 03:37 Seg Neutrophils % 89.5 % (40.0-70.0) H 07/14/19 07:11 Seg Neuts % (Manual) 92.0 % (40.0-70.0) H 07/13/19 03:37 Band Neutrophils % 0 % 07/13/19 03:37 Lymphocytes % (Manual) 5.0 % (13.4-35.0) L 07/13/19 03:37 Reactive Lymphs % (Man) 0 % 07/13/19 03:37 Monocytes % (Manual) 3.0 % (0.0-7.3) 07/13/19 03:37 Eosinophils % (Manual) 0 % (0.0-4.3) 07/13/19 03:37 Basophils % (Manual) 0 % (0.0-1.8) 07/13/19 03:37 Metamyelocytes % 0 % 07/13/19 03:37 Myelocytes % 0 % 07/13/19 03:37 Promyelocytes % 0 % 07/13/19 03:37 Blast Cells % 0 % 07/13/19 03:37 Nucleated RBC % Not Reportable 07/13/19 03:37 Seg Neutrophils # 10.8 K/mm3 (1.8-7.7) H 07/14/19 07:11 Seg Neutrophils # Man 10.7 K/mm3 (1.8-7.7) H 07/13/19 03:37 Band Neutrophils # 0.0 K/mm3 07/13/19 03:37 Lymphocytes # (Manual) 0.6 K/mm3 (1.2-5.4) L 07/13/19 03:37 Abs React Lymphs (Man) 0.0 K/mm3 07/13/19 03:37 Monocytes # (Manual) 0.3 K/mm3 (0.0-0.8) 07/13/19 03:37 Eosinophils # (Manual) 0.0 K/mm3 (0.0-0.4) 07/13/19 03:37 Basophils # (Manual) 0.0 K/mm3 (0.0-0.1) 07/13/19 03:37 Metamyelocytes # 0.0 K/mm3 07/13/19 03:37 Myelocytes # 0.0 K/mm3 07/13/19 03:37 Promyelocytes # 0.0 K/mm3 07/13/19 03:37 Blast Cells # 0.0 K/mm3 07/13/19 03:37 WBC Morphology Not Reportable 07/13/19 03:37 Hypersegmented Neuts Not Reportable 07/13/19 03:37 Hyposegmented Neuts Not Reportable 07/13/19 03:37 Hypogranular Neuts Not Reportable 07/13/19 03:37 Smudge Cells Not Reportable 07/13/19 03:37 Toxic Granulation Not Reportable 07/13/19 03:37 Toxic Vacuolation Not Reportable 07/13/19 03:37 Dohle Bodies Not Reportable 07/13/19 03:37 Pelger-Huet Anomaly Not Reportable 07/13/19 03:37 Jose Rods Not Reportable 07/13/19 03:37 Platelet Estimate Consistent w auto 07/13/19 03:37 Clumped Platelets Not Reportable 07/13/19 03:37 Plt Clumps, EDTA Not Reportable 07/13/19 03:37 Large Platelets Not Reportable 07/13/19 03:37 Giant Platelets Not Reportable 07/13/19 03:37 Platelet Satelliting Not Reportable 07/13/19 03:37 Plt Morphology Comment Not Reportable 07/13/19 03:37 RBC Morphology Not Reportable 07/13/19 03:37 Dimorphic RBCs Not Reportable 07/13/19 03:37 Polychromasia Not Reportable 07/13/19 03:37 Hypochromasia Not Reportable 07/13/19 03:37 Poikilocytosis 1+ 07/13/19 03:37 Anisocytosis Not Reportable 07/13/19 03:37 Microcytosis Not Reportable 07/13/19 03:37 Macrocytosis Not Reportable 07/13/19 03:37 Spherocytes Not Reportable 07/13/19 03:37 Pappenheimer Bodies Not Reportable 07/13/19 03:37 Sickle Cells Not Reportable 07/13/19 03:37 Target Cells Not Reportable 07/13/19 03:37 Tear Drop Cells Not Reportable 07/13/19 03:37 Ovalocytes Not Reportable 07/13/19 03:37 Helmet Cells Not Reportable 07/13/19 03:37 [place] Bodies Not Reportable 07/13/19 03:37 [place] Rings Not Reportable 07/13/19 03:37 [place] Cells 1+ 07/13/19 03:37 Bite Cells Not Reportable 07/13/19 03:37 Crenated Cell Not Reportable 07/13/19 03:37 Elliptocytes Not Reportable 07/13/19 03:37 Acanthocytes (Spur) Not Reportable 07/13/19 03:37 Rouleaux Not Reportable 07/13/19 03:37 Hemoglobin C Crystals Not Reportable 07/13/19 03:37 Schistocytes Not Reportable 07/13/19 03:37 Malaria parasites Not Reportable 07/13/19 03:37 Ranjit Bodies Not Reportable 07/13/19 03:37 Hem Pathologist Commnt No 07/13/19 03:37 PT 16.6 Sec. (12.2-14.9) H 07/15/19 03:21 INR 1.32 (0.87-1.13) H 07/15/19 03:21 APTT 25.9 Sec. (24.2-36.6) 07/14/19 11:22 Heparin Anti-Xa Level 1.09 U.I./ml (0.3-0.7) H 07/15/19 03:21 Sodium 140 mmol/L (137-145) 07/14/19 07:11 Potassium 3.1 mmol/L (3.6-5.0) L 07/14/19 07:11 Chloride 101.7 mmol/L (98-107) 07/14/19 07:11 Carbon Dioxide 21 mmol/L (22-30) L 07/14/19 07:11 Anion Gap 20 mmol/L 07/14/19 07:11 BUN 47 mg/dL (9-20) H 07/14/19 07:11 Creatinine 1.7 mg/dL (0.8-1.5) H 07/14/19 07:11 Estimated GFR 39 ml/min 07/14/19 07:11 BUN/Creatinine Ratio 28 % 07/14/19 07:11 Glucose 102 mg/dL (75-100) H 07/14/19 07:11 Calcium 8.6 mg/dL (8.4-10.2) 07/14/19 07:11 Magnesium 2.20 mg/dL (1.7-2.3) 07/09/19 13:05 Total Bilirubin 1.10 mg/dL (0.1-1.2) 07/14/19 07:11 AST 42 units/L (5-40) H 07/14/19 07:11 ALT 189 units/L (7-56) H 07/14/19 07:11 Alkaline Phosphatase 229 units/L (35-129) H 07/14/19 07:11 Troponin T 0.015 ng/mL (0.00-0.029) 07/09/19 19:53 NT-Pro-B Natriuret Pep 9770 pg/mL (0-900) H 07/09/19 13:05 Total Protein 5.6 g/dL (6.3-8.2) L 07/14/19 07:11 Albumin 3.0 g/dL (3.9-5) L 07/14/19 07:11 Albumin/Globulin Ratio 1.2 % 07/14/19 07:11 TSH 2.520 mlU/mL (0.270-4.200) 07/12/19 20:13 Free T4 1.30 ng/dL (0.76-1.46) 07/12/19 20:13 Thyroxine (T4) 6.7 ug/dL (4.0-12.0) 07/12/19 20:13 Hepatitis A IgM Ab Non-reactive (NonReactive) 07/14/19 07:11 Hep Bs Antigen Non-reactive (Negative) 07/14/19 07:11 Hep B Core IgM Ab Non-reactive (NonReactive) 07/14/19 07:11 Hepatitis C Antibody Non-reactive (NonReactive) 07/14/19 07:11 Microbiology: Microbiology 07/09/19 15:30 Peripheral/Venous Blood Culture - Final NO GROWTH AFTER 5 DAYS 07/09/19 15:30 Peripheral/Venous Blood Culture - Final NO GROWTH AFTER 5 DAYS Faustin/IV: Voiding Method Urinal IV Catheter Type [Right INT / Saline Lock Forearm] IV Catheter Type [Left Forearm INT / Saline Lock ] IV Catheter Type [Right Wrist] Peripheral IV IV Catheter Type [Right INT / Saline Lock Antecubital] Active Medications - Current Medications Current Medications: Generic Name Dose Route Start Last Admin Trade Name Freq PRN Reason Stop Dose Admin Acetaminophen 650 mg 07/09/19 16:41 Tylenol PO Q4H PRN Pain MILD(1-3)/Fever >100.5/PALACIO Bumetanide 2 mg 07/13/19 10:00 07/14/19 09:44 Bumex PO 2 mg QDAY MARIE Administration Cetirizine HCl 10 mg 07/13/19 10:00 07/14/19 09:44 Cetirizine PO 10 mg DAILY MARIE Administration Cholecalciferol 5,000 unit 07/16/19 10:00 Vitamin D3 PO We@1000 MARIE Diltiazem HCl 90 mg 07/15/19 06:00 07/15/19 05:28 Cardizem PO Not Given Q6HR MARIE Heparin Sodium/Sodium Chloride 25,000 unit in 500 mls @ 30 mls/hr 07/14/19 12:00 07/15/19 06:35 Heparin/ 0.45% Nacl-25,000 Unit/500 Ml IV 1,200 units/hr TITR MARIE 24 mls/hr Administration Protocol 1,500 UNITS/HR Ipratropium [place] 0.5 mg 07/12/19 20:00 07/14/19 20:38 Atrovent IH 0.5 mg TIDRT MARIE Administration Metoprolol Tartrate 100 mg 07/13/19 14:00 07/14/19 21:51 Metoprolol PO 100 mg TID MARIE Administration Ondansetron HCl 4 mg 07/09/19 16:41 Zofran IV Q8H PRN Nausea And Vomiting Prednisone 30 mg 07/12/19 17:00 07/14/19 09:44 Deltasone PO 30 mg QDAY MARIE Administration Sodium Chloride 10 ml 07/09/19 22:00 07/14/19 21:51 Sodium Chloride Flush Syringe 10 Ml IV 10 ml BID MARIE Administration Sodium Chloride 10 ml 07/09/19 16:41 07/10/19 11:12 Sodium Chloride Flush Syringe 10 Ml IV 10 ml PRN PRN Administration LINE FLUSH Nutrition/Malnutrition Assess - Dietary Evaluation Nutrition/Malnutrition Findings: Nutrition Notes Start: 07/14/19 13:52 Freq: Status: Active Protocol: Document 07/14/19 13:52 JIMMIE (Rec: 07/14/19 13:54 [id number]) Nutrition Notes Need for Assessment generated from: Education Initial or Follow up Brief Note Pertinent Medications Coumadin Subjective/Other Information Pt screened for coumadin use. RD spoke with pt via telephone; pt denied need for DNI education, as he has been taking coumadin for "a long time". Will assess upon further consult or LOS.
--- NOTE | 2019-07-15 10:57 | Progress Note ---
Assessment and Plan Persistent atrial fibrillation with RVR Unable to optimize HR chemically. Cont lopressor and cardizem. Plan for tx to [facility] on Sunday for AV fani ablation and bi-ventricular pacemaker on at 9:30AM per Dr. Grier. Anticoagulated with coumadin at home. Coumadin held and Heparin gtt initiated as pt is pending procedure. Acute heart failure with preserved ejection fraction Improved. Cont PO bumex. Monitor renal indices. Echo done 04/2019 showed EF 50-55%, mild to mod LVH. Transaminitis Normal LFTs in 04/2019. s/p amiodarone. Hold home statin, hold amio. monitor LFTs. Supratherapeutic INR Improved. Leukocytosis Afebrile. CXR no apparent infectious process. Pt denies any recent PO steroid use. Blood cultures NGTD. 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 Followed by Dr. Aly. Monitor renal indices. History of DVT / History of pulmonary embolism Anticoagulated with coumadin at home. S/p IVC filter. HTN Stable. Cont lopressor and cardizem. Hyperlipidemia Hold home statin in setting of elevated LFTs. ? COPD / Tobacco use Followed by Dr. Fermin. Elevated TSH Further eval/management per primary. Unable to optimize HR chemically. Cont lopressor and cardizem. Plan for tx to [facility] on Sunday for AV fani ablation and bi-ventricular pacemaker on at 9:30AM per Dr. Grier. Coumadin held and Heparin gtt initiated as pt is pending procedure. The patient has been seen in conjunction with Dr. Fabi Anthony who agrees with the assessment and plan of care. Subjective Date of service: 07/15/19 Principal diagnosis: AFib RVR Interval history: pt sitting up at bedside, feeling ok. tele reviewed - in AFib HR 130s overnight. Objective Last Vital Signs Temp 97.8 F 07/15/19 03:59 Pulse 84 07/15/19 05:28 Resp 20 07/15/19 03:59 BP 105/66 07/15/19 05:28 Pulse Ox 96 07/15/19 03:59 - Physical Examination General: No Apparent Distress HEENT: Positive: PERRL, Normocephaly, Mucus Membranes Moist Neck: Positive: neck supple, trachea midline Cardiac: Positive: irregularly irregular, S1/S2 Lungs: Positive: Decreased Breath Sounds Neuro: Positive: Grossly Intact Abdomen: Negative: Tender Skin: Negative: Rash Musculoskeletal: No Pain Extremities: Absent: edema - Labs and Meds Coagulation 07/14/19 07/15/19 Range/Units 11:22 03:21 PT 15.9 H 16.6 H (12.2-14.9) Sec. INR 1.25 H 1.32 H (0.87-1.13) APTT 25.9 (24.2-36.6) Sec. CBC 07/14/19 Range/Units 11:22 Hgb 14.8 (11.8-15.2) gm/dl Hct 44.4 (35.5-45.6) % Plt Count 155 (140-440) K/mm3 - Imaging and Cardiology EKG: report reviewed (Tosin patel with RVR heart rate of 1 30-1 40) Echo: report reviewed (04/2019 showed EF 50-55%, mild to mod LVH. ) - Telemetry EKG Rhythm: Atrial Fibrillation
[2019-07-15] MEDS: predniSONE 20 MG TAB PO SCH (11:11)
[2019-07-15] MEDS: CETIRIZINE 10 MG TAB PO SCH (11:11)
[2019-07-15] MEDS: METOPROLOL TARTRATE 100 MG TAB PO SCH ×3 (11:11→21:23)
[2019-07-15] MEDS: BUMETANIDE 1 MG TAB PO SCH (11:12)
--- NOTE | 2019-07-15 14:44 | Progress Note ---
Assessment and Plan - Patient Problems (1) Atrial fibrillation with RVR Current Visit: Yes Status: Acute Plan to address problem: On Cardizem drip Metoprolol added 100 mg 3 times a day Cardizem drip till a.m. Changed to p.o. Cardizem If heart rate in the low 100s we will discharge the patient for outpatient AV fani ablation versus defibrillator. Cardiology follow-up appreciated (2) Acute heart failure with preserved ejection fraction (HFpEF) Current Visit: No Status: Acute Plan to address problem: Acute diastolic heart failure with preserved preserved ejection fraction Diuresis as necessary Patient accepted for transfer on July 15Sunday to [facility] for possible ablation on July [address] Trisha Grier (3) Acute kidney injury Current Visit: Yes Status: Acute Plan to address problem: Secondary to ATN Creatinine was 2.3 on July 08 and 2 0.8 which is improved to 1.7 today ATN is a possibility (4) Hypertension Current Visit: Yes Status: Chronic Qualifiers: Hypertension type: essential hypertension Qualified Code(s): I10 - Essential (primary) hypertension Plan to address problem: Continue antihypertensives (5) COPD (chronic obstructive pulmonary disease) Current Visit: Yes Status: Chronic Plan to address problem: Continue Spiriva (6) Hyperlipidemia Current Visit: Yes Status: Chronic Qualifiers: Hyperlipidemia type: mixed hyperlipidemia Qualified Code(s): E78.2 - Mixed hyperlipidemia Plan to address problem: Continue statins (7) Vitamin D deficiency Current Visit: Yes Status: Chronic Plan to address problem: Continue vitamin D (8) Sick-euthyroid syndrome Current Visit: Yes Status: Acute Plan to address problem: TSH and T4 are high which is inconsistent with hypothyroidism or hyperthyroidism thyroid profile reordered and was normal Thyroid panel normal No levothyroxine or methimazole (9) Transaminitis Current Visit: Yes Status: Acute Plan to address problem: Secondary to possibly statins and amiodarone (10) DVT prophylaxis Current Visit: Yes Status: Acute Plan to address problem: Heparin subcu and GI prophylaxis. Subjective Date of service: 07/15/19 Principal diagnosis: AFib RVR Interval history: Admitted for A. fib with RVR, hypertension, hyperlipidemia and anticoagulation Patient continues to have palpitations Heart rate in 130s to 140s Not responding to Cardizem drip or amiodarone drip Discussed with Dr. Gatica Objective - Constitutional Vitals: Vital Signs - 12hr 07/15/19 07/15/19 07/15/19 03:51 03:59 05:28 Temperature 97.8 F 97.8 F Pulse Rate 84 84 Respiratory 20 20 Rate Blood Pressure 105/66 105/66 Blood Pressure 105/66 [Right] O2 Sat by Pulse 96 Oximetry 07/15/19 07/15/19 07/15/19 09:46 10:00 11:11 Temperature 97.0 F L Pulse Rate 123 H 115 H 124 H Respiratory 20 Rate Blood Pressure 128/94 Blood Pressure [Right] O2 Sat by Pulse 94 Oximetry 07/15/19 07/15/19 12:08 12:09 Temperature 98.3 F Pulse Rate 129 H 154 H Respiratory 20 Rate Blood Pressure 112/81 112/81 Blood Pressure [Right] O2 Sat by Pulse 95 Oximetry General appearance: Present: no acute distress, well-nourished - EENT Eyes: PERRL, EOM intact ENT: hearing intact, clear oral mucosa Ears: bilateral: normal - Neck Neck: supple, normal ROM - Respiratory Respiratory effort: normal Respiratory: bilateral: CTA - Breasts Breasts: normal - Cardiovascular Rhythm: regular Heart Sounds: Present: S1 & S2. Absent: gallop, rub Extremities: pulses intact, No edema, normal color, Full ROM - Gastrointestinal General gastrointestinal: Present: soft, non-tender, non-distended, normal bowel sounds - Genitourinary Male genitourinary: normal - Integumentary Integumentary: clear, warm, dry - Musculoskeletal Musculoskeletal: 1, strength equal bilaterally - Neurologic Neurologic: moves all extremities - Psychiatric Psychiatric: memory intact, appropriate mood/affect, intact judgment & insight - Labs CBC & Chem 7: 07/14/19 11:22 07/14/19 07:11 Labs: Abnormal lab results 07/14/19 07/15/19 Range/Units 19:54 03:21 PT 16.6 H (12.2-14.9) Sec. INR 1.32 H (0.87-1.13) Heparin Anti-Xa Level 0.81 H 1.09 H (0.3-0.7) U.I./ml
[2019-07-15] MEDS: IPRATROPIUM 0.02% NEBU 2.5 ML IH SCH ×2 (16:38→20:55)
[2019-07-16 05:50] LABS: Hemoglobin 14.5 gm/dl (11.8-15.2)
[2019-07-16 05:53] LABS: INR 1.19 (0.87-1.13)
[2019-07-16 06:39] LABS: Calcium 8.8 mg/dL (8.4-10.2)
[2019-07-16] MEDS: HEPARIN/ 0.45% NACL DRIP 25,000 UNIT/500 ML BAG IV SCH ×2 (06:39→15:15)
[2019-07-16] MEDS: IPRATROPIUM 0.02% NEBU 2.5 ML IH SCH (08:39)
[2019-07-16] MEDS ORDERED: IPRATROPIUM 0.02% NEBU 2.5 ML IH PRN (08:41)
[2019-07-16] MEDS ORDERED: CHOLECALCIFEROL (VIT D3) 5,000 UNIT TAB PO SCH (10:00)
[2019-07-16] MEDS: BUMETANIDE 1 MG TAB PO SCH (10:35)
[2019-07-16] MEDS: predniSONE 20 MG TAB PO SCH (10:35)
[2019-07-16] MEDS: METOPROLOL TARTRATE 100 MG TAB PO SCH ×2 (10:35→14:17)
[2019-07-16] MEDS: CETIRIZINE 10 MG TAB PO SCH (10:36)
--- NOTE | 2019-07-16 11:21 | Progress Note ---
Assessment and Plan Persistent atrial fibrillation with RVR Unable to optimize HR chemically. Cont lopressor and cardizem. Transfer to [facility] for AV fani ablation and bi-ventricular pacemaker on at 9:30AM per Dr. Grier. NPO after MN. Anticoagulated with coumadin at home. Coumadin held and Heparin gtt initiated as pt is pending procedure. Acute heart failure with preserved ejection fraction Improved. Cont PO bumex. Monitor renal indices. Echo done 04/2019 showed EF 50-55%, mild to mod LVH. Transaminitis Normal LFTs in 04/2019. s/p amiodarone. Hold home statin, hold amio. monitor LFTs. Supratherapeutic INR Improved. Leukocytosis Afebrile. CXR no apparent infectious process. Pt denies any recent PO steroid use. Blood cultures NGTD. 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 Followed by Dr. Aly. Monitor renal indices. History of DVT / History of pulmonary embolism Anticoagulated with coumadin at home. S/p IVC filter. HTN Stable. Cont lopressor and cardizem. Hyperlipidemia Hold home statin in setting of elevated LFTs. ? COPD / Tobacco use Followed by Dr. Fermin. Elevated TSH Further eval/management per primary. Unable to optimize HR chemically. Cont lopressor and cardizem. Transfer to [facility] for AV fani ablation and bi-ventricular pacemaker on at 9:30AM per Dr. Grier. NPO after MN. Coumadin held and Heparin gtt initiated as pt is pending procedure. The patient has been seen in conjunction with Dr. Fabi Anthony who agrees with the assessment and plan of care. Subjective Date of service: 07/16/19 Principal diagnosis: AFib RVR Interval history: pt sitting up at bedside, feeling ok. tele reviewed - in AFib HR 110s - 120s overnight. Objective Last Vital Signs Temp 97.5 F L 07/16/19 08:21 Pulse 61 07/16/19 08:21 Resp 20 07/16/19 08:21 BP 123/76 07/16/19 08:21 Pulse Ox 95 07/16/19 08:39 - Physical Examination General: No Apparent Distress HEENT: Positive: PERRL, Normocephaly, Mucus Membranes Moist Neck: Positive: neck supple, trachea midline Cardiac: Positive: irregularly irregular, S1/S2 Lungs: Positive: Decreased Breath Sounds Neuro: Positive: Grossly Intact Abdomen: Negative: Tender Skin: Negative: Rash Musculoskeletal: No Pain Extremities: Absent: edema - Labs and Meds Coagulation 07/16/19 Range/Units 05:14 PT 15.3 H (12.2-14.9) Sec. INR 1.19 H (0.87-1.13) CBC 07/16/19 Range/Units 05:15 Hgb 14.5 (11.8-15.2) gm/dl Hct 44.0 (35.5-45.6) % Plt Count 145 (140-440) K/mm3 Comprehensive Metabolic Panel 07/16/19 Range/Units 05:14 Sodium 143 (137-145) mmol/L Potassium 3.7 (3.6-5.0) mmol/L Chloride 103.6 (98-107) mmol/L Carbon Dioxide 27 (22-30) mmol/L BUN 45 H (9-20) mg/dL Creatinine 1.5 (0.8-1.5) mg/dL Glucose 117 H (75-100) mg/dL Calcium 8.8 (8.4-10.2) mg/dL - Imaging and Cardiology EKG: report reviewed (Tosin patel with RVR heart rate of 1 30-1 40) Echo: report reviewed (04/2019 showed EF 50-55%, mild to mod LVH. ) - Telemetry EKG Rhythm: Atrial Fibrillation
[2019-07-16 12:32] VITALS: BP 118/67
--- NOTE | 2019-07-16 15:03 | Discharge Summary ---
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 fib with rapid ventricular rate Condition: Fair Pertinent studies: Chest x-ray Hospital course: 78-year-old male patient with significant past medical history of atrial fibrillation DVT and PE IVC filter chronic anticoagulation with Coumadin hypertension dyslipidemia chronic kidney disease COPD follows with pulmonary ne phrology and cardiology was admitted through emergency room with Eulalio. jorge with rapid ventricular rate heart between 1 40-1 50s, started on Cardizem drip, and IV amiodarone. Patient's heart rate remained high in spite of beta-blockers Cardizem, cardiology is planning to transfer the patient to [facility] For possible AV fani ablation and biventricular pacemaker placement. The patient is comfortable denies any chest pain or shortness of breath Vital signs reviewed, patient is hemodynamically stable for transfer When bed is available Discharge diagnosis : -- Atrial fibrillation with RVR; Current Visit: Yes Status: Acute s/p Cardizem drip,Metoprolol 100 mg 3 times a day p.o. Cardizem, received few doses of amiodarone , on heparin drip Possible transfer to [facility] for AV fani ablation and biventricular pacemaker placement --Acute heart failure with preserved ejection fraction (HFpEF) Current Visit: No Status: Acute Acute diastolic heart failure with preserved preserved ejection fraction Diuresis as necessary, Patient accepted for transfer on July 15Sunday to [facility] for possible ablation on July [address] Trisha Grier -- Acute kidney injury Current Visit: Yes Status: Acute Secondary to ATN, gentle hydration Creatinine levels significantly improved -- Hypertension Current Visit: Yes Status: Chronic Continue antihypertensives --COPD (chronic obstructive pulmonary disease) Current Visit: Yes Status: Chronic Continue Spiriva --Hyperlipidemia Current Visit: Yes Status: Chronic Continue statins --Vitamin D deficiency Current Visit: Yes Status: Chronic Continue vitamin D --Abnormal thyroid function tests; Mild hypothyroidism, patient is on amiodarone Closely monitor TFTs --Transaminitis Current Visit: Yes Status: Acute Trending down probably due to statins and amiodarone Statin and amiodarone held --DVT prophylaxis Current Visit: Yes Status: Acute Possible transfer to [facility] for A. fib ablation Plan of care reviewed with the patient and his nurse Floor Covering Printer recommendations noted and appreciated Disposition: DC/TX-70 ANOTHER TYPE HLTHCARE Time spent for discharge: 35 min Core Measure Documentation - Palliative Care Palliative Care/ Comfort Measures: Not Applicable - Core Measures Any of the following diagnoses?: none Exam - Constitutional Vitals: Temp Pulse Resp BP Pulse Ox 98.3 F 63 20 118/67 95 07/16/19 12:15 07/16/19 12:15 07/16/19 12:15 07/16/19 12:15 07/16/19 12:15 General appearance: Present: no acute distress, well-nourished, obese - EENT Eyes: Present: PERRL, EOM intact - Neck Neck: Present: supple, normal ROM - Respiratory Respiratory effort: normal Respiratory: bilateral: diminished, negative: rales, rhonchi, wheezing - Cardiovascular Rhythm: irregularly irregular Heart Sounds: Present: S1 & S2 - Extremities Extremities: no ischemia, No edema - Abdominal General gastrointestinal: Present: soft, non-tender, non-distended, normal bowel sounds - Integumentary Integumentary: Present: clear, warm - Musculoskeletal Musculoskeletal: strength equal bilaterally - Psychiatric Psychiatric: appropriate mood/affect, cooperative - Neurologic Neurologic: CNII-XII intact, moves all extremities Plan Additional Instructions: Transfer to [facility] for possible AV fani ablation and biventricular pacemaker placement Follow up with: PRIMARY CAREMD [Primary Care Provider] - 3-5 Days Forms: Warfarin Discharge Instruction
--- NOTE | 2019-07-16 18:01 | Progress Note ---
Assessment and Plan Assessment and plan: -- Atrial fibrillation with RVR Current Visit: Yes Status: Acute s/p Cardizem drip,Metoprolol added 100 mg 3 times a day Continue p.o. Cardizem, heparin drip for AV fain ablation at [facility] tomorrow Cardiology following --Acute heart failure with preserved ejection fraction (HFpEF) Current Visit: No Status: Acute Acute diastolic heart failure with preserved preserved ejection fraction Diuresis as necessary, Patient accepted for transfer on July 15Sunday to [facility] for possible ablation on July [address] Trisha Grier -- Acute kidney injury Current Visit: Yes Status: Acute Secondary to ATN, gentle hydration Creatinine levels improving -- Hypertension Current Visit: Yes Status: Chronic Continue antihypertensives --COPD (chronic obstructive pulmonary disease) Current Visit: Yes Status: Chronic Continue Spiriva --Hyperlipidemia Current Visit: Yes Status: Chronic Continue statins --Vitamin D deficiency Current Visit: Yes Status: Chronic Continue vitamin D --Abnormal thyroid function tests; Mild hypothyroidism, patient is on amiodarone Closely monitor TFTs --Transaminitis Current Visit: Yes Status: Acute Trending down probably due to statins and amiodarone Statin and amiodarone held --DVT prophylaxis Current Visit: Yes Status: Acute Possible transfer to [facility] for A. fib ablation Plan of care reviewed with the patient and his nurse Bean Snipper recommendations noted and appreciated History PUI?: No Hospitalist Physical - Constitutional Vitals: Temp Pulse Resp BP Pulse Ox 98.3 F 63 20 118/67 95 07/16/19 12:15 07/16/19 12:15 07/16/19 12:15 07/16/19 12:15 07/16/19 12:15 General appearance: Present: no acute distress, well-nourished, obese Results - Labs CBC & Chem 7: 07/16/19 05:15 07/16/19 05:14 Labs: Laboratory Last Values WBC 12.1 K/mm3 (4.5-11.0) H 07/14/19 07:11 RBC 4.49 M/mm3 (3.65-5.03) 07/14/19 07:11 Hgb 14.5 gm/dl (11.8-15.2) 07/16/19 05:15 Hct 44.0 % (35.5-45.6) 07/16/19 05:15 MCV 94 fl (84-94) 07/14/19 07:11 MCH 32 pg (28-32) 07/14/19 07:11 MCHC 34 % (32-34) 07/14/19 07:11 RDW 15.6 % (13.2-15.2) H 07/14/19 07:11 Plt Count 145 K/mm3 (140-440) 07/16/19 05:15 Lymph % (Auto) 3.6 % (13.4-35.0) L 07/14/19 07:11 Collier % (Auto) 6.5 % (0.0-7.3) 07/14/19 07:11 Eos % (Auto) 0.2 % (0.0-4.3) 07/14/19 07:11 Baso % (Auto) 0.2 % (0.0-1.8) 07/14/19 07:11 Lymph # 0.4 K/mm3 (1.2-5.4) L 07/14/19 07:11 Collier # 0.8 K/mm3 (0.0-0.8) 07/14/19 07:11 Eos # 0.0 K/mm3 (0.0-0.4) 07/14/19 07:11 Baso # 0.0 K/mm3 (0.0-0.1) 07/14/19 07:11 Add Manual Diff Complete 07/13/19 03:37 Total Counted 100 07/13/19 03:37 Seg Neutrophils % 89.5 % (40.0-70.0) H 07/14/19 07:11 Seg Neuts % (Manual) 92.0 % (40.0-70.0) H 07/13/19 03:37 Band Neutrophils % 0 % 07/13/19 03:37 Lymphocytes % (Manual) 5.0 % (13.4-35.0) L 07/13/19 03:37 Reactive Lymphs % (Man) 0 % 07/13/19 03:37 Monocytes % (Manual) 3.0 % (0.0-7.3) 07/13/19 03:37 Eosinophils % (Manual) 0 % (0.0-4.3) 07/13/19 03:37 Basophils % (Manual) 0 % (0.0-1.8) 07/13/19 03:37 Metamyelocytes % 0 % 07/13/19 03:37 Myelocytes % 0 % 07/13/19 03:37 Promyelocytes % 0 % 07/13/19 03:37 Blast Cells % 0 % 07/13/19 03:37 Nucleated RBC % Not Reportable 07/13/19 03:37 Seg Neutrophils # 10.8 K/mm3 (1.8-7.7) H 07/14/19 07:11 Seg Neutrophils # Man 10.7 K/mm3 (1.8-7.7) H 07/13/19 03:37 Band Neutrophils # 0.0 K/mm3 07/13/19 03:37 Lymphocytes # (Manual) 0.6 K/mm3 (1.2-5.4) L 07/13/19 03:37 Abs React Lymphs (Man) 0.0 K/mm3 07/13/19 03:37 Monocytes # (Manual) 0.3 K/mm3 (0.0-0.8) 07/13/19 03:37 Eosinophils # (Manual) 0.0 K/mm3 (0.0-0.4) 07/13/19 03:37 Basophils # (Manual) 0.0 K/mm3 (0.0-0.1) 07/13/19 03:37 Metamyelocytes # 0.0 K/mm3 07/13/19 03:37 Myelocytes # 0.0 K/mm3 07/13/19 03:37 Promyelocytes # 0.0 K/mm3 07/13/19 03:37 Blast Cells # 0.0 K/mm3 07/13/19 03:37 WBC Morphology Not Reportable 07/13/19 03:37 Hypersegmented Neuts Not Reportable 07/13/19 03:37 Hyposegmented Neuts Not Reportable 07/13/19 03:37 Hypogranular Neuts Not Reportable 07/13/19 03:37 Smudge Cells Not Reportable 07/13/19 03:37 Toxic Granulation Not Reportable 07/13/19 03:37 Toxic Vacuolation Not Reportable 07/13/19 03:37 Dohle Bodies Not Reportable 07/13/19 03:37 Pelger-Huet Anomaly Not Reportable 07/13/19 03:37 Jose Rods Not Reportable 07/13/19 03:37 Platelet Estimate Consistent w auto 07/13/19 03:37 Clumped Platelets Not Reportable 07/13/19 03:37 Plt Clumps, EDTA Not Reportable 07/13/19 03:37 Large Platelets Not Reportable 07/13/19 03:37 Giant Platelets Not Reportable 07/13/19 03:37 Platelet Satelliting Not Reportable 07/13/19 03:37 Plt Morphology Comment Not Reportable 07/13/19 03:37 RBC Morphology Not Reportable 07/13/19 03:37 Dimorphic RBCs Not Reportable 07/13/19 03:37 Polychromasia Not Reportable 07/13/19 03:37 Hypochromasia Not Reportable 07/13/19 03:37 Poikilocytosis 1+ 07/13/19 03:37 Anisocytosis Not Reportable 07/13/19 03:37 Microcytosis Not Reportable 07/13/19 03:37 Macrocytosis Not Reportable 07/13/19 03:37 Spherocytes Not Reportable 07/13/19 03:37 Pappenheimer Bodies Not Reportable 07/13/19 03:37 Sickle Cells Not Reportable 07/13/19 03:37 Target Cells Not Reportable 07/13/19 03:37 Tear Drop Cells Not Reportable 07/13/19 03:37 Ovalocytes Not Reportable 07/13/19 03:37 Helmet Cells Not Reportable 07/13/19 03:37 [place] Bodies Not Reportable 07/13/19 03:37 [place] Rings Not Reportable 07/13/19 03:37 Joel Cells 1+ 07/13/19 03:37 Bite Cells Not Reportable 07/13/19 03:37 Crenated Cell Not Reportable 07/13/19 03:37 Elliptocytes Not Reportable 07/13/19 03:37 Acanthocytes (Spur) Not Reportable 07/13/19 03:37 Rouleaux Not Reportable 07/13/19 03:37 Hemoglobin C Crystals Not Reportable 07/13/19 03:37 Schistocytes Not Reportable 07/13/19 03:37 Malaria parasites Not Reportable 07/13/19 03:37 Ranjit Bodies Not Reportable 07/13/19 03:37 Hem Pathologist Commnt No 07/13/19 03:37 PT 15.3 Sec. (12.2-14.9) H 07/16/19 05:14 INR 1.19 (0.87-1.13) H 07/16/19 05:14 APTT 25.9 Sec. (24.2-36.6) 07/14/19 11:22 Heparin Anti-Xa Level > 2.00 U.I./ml (0.3-0.7) H 07/16/19 11:35 Sodium 143 mmol/L (137-145) 07/16/19 05:14 Potassium 3.7 mmol/L (3.6-5.0) 07/16/19 05:14 Chloride 103.6 mmol/L (98-107) 07/16/19 05:14 Carbon Dioxide 27 mmol/L (22-30) 07/16/19 05:14 Anion Gap 16 mmol/L 07/16/19 05:14 BUN 45 mg/dL (9-20) H 07/16/19 05:14 Creatinine 1.5 mg/dL (0.8-1.5) 07/16/19 05:14 Estimated GFR 45 ml/min 07/16/19 05:14 BUN/Creatinine Ratio 30 % 07/16/19 05:14 Glucose 117 mg/dL (75-100) H 07/16/19 05:14 Calcium 8.8 mg/dL (8.4-10.2) 07/16/19 05:14 Magnesium 2.10 mg/dL (1.7-2.3) 07/16/19 05:14 Total Bilirubin 1.10 mg/dL (0.1-1.2) 07/14/19 07:11 AST 42 units/L (5-40) H 07/14/19 07:11 ALT 189 units/L (7-56) H 07/14/19 07:11 Alkaline Phosphatase 229 units/L (35-129) H 07/14/19 07:11 Troponin T 0.015 ng/mL (0.00-0.029) 07/09/19 19:53 NT-Pro-B Natriuret Pep 9770 pg/mL (0-900) H 07/09/19 13:05 Total Protein 5.6 g/dL (6.3-8.2) L 07/14/19 07:11 Albumin 3.0 g/dL (3.9-5) L 07/14/19 07:11 Albumin/Globulin Ratio 1.2 % 07/14/19 07:11 TSH 2.520 mlU/mL (0.270-4.200) 07/12/19 20:13 Free T4 1.30 ng/dL (0.76-1.46) 07/12/19 20:13 Thyroxine (T4) 6.7 ug/dL (4.0-12.0) 07/12/19 20:13 T3 (CALEB) 61 ng/dL (76-181) L 07/12/19 20:13 Free T3 Index 1.9 pg/mL (2.3-4.2) L 07/12/19 20:13 T3 Uptake 40 % (22-35) H 07/12/19 20:13 Hepatitis A IgM Ab Non-reactive (NonReactive) 07/14/19 07:11 Hep Bs Antigen Non-reactive (Negative) 07/14/19 07:11 Hep B Core IgM Ab Non-reactive (NonReactive) 07/14/19 07:11 Hepatitis C Antibody Non-reactive (NonReactive) 07/14/19 07:11 Faustin/IV: Voiding Method Urinal IV Catheter Type [Right INT / Saline Lock Forearm] IV Catheter Type [Left Forearm INT / Saline Lock ] IV Catheter Type [Right Wrist] Peripheral IV IV Catheter Type [Right INT / Saline Lock Antecubital] Active Medications - Current Medications Current Medications: Generic Name Dose Route Start Last Admin Trade Name Freq PRN Reason Stop Dose Admin Acetaminophen 650 mg 07/09/19 16:41 Tylenol PO Q4H PRN Pain MILD(1-3)/Fever >100.5/PALACIO Bumetanide 2 mg 07/13/19 10:00 07/16/19 10:35 Bumex PO 2 mg QDAY MARIE Administration Cetirizine HCl 10 mg 07/13/19 10:00 07/16/19 10:36 Cetirizine PO 10 mg DAILY MARIE Administration Cholecalciferol 5,000 unit 07/16/19 10:00 07/16/19 10:35 Vitamin D3 PO 5,000 unit We@1000 MARIE Administration Diltiazem HCl 90 mg 07/15/19 06:00 07/16/19 17:36 Cardizem PO 90 mg Q6HR MARIE Administration Heparin Sodium/Sodium Chloride 25,000 unit in 500 mls @ 30 mls/hr 07/14/19 12:00 07/16/19 15:15 Heparin/ 0.45% Nacl-25,000 Unit/500 Ml IV 07/17/19 05:00 1,000 units/hr TITR MARIE 20 mls/hr Administration Protocol 1,500 UNITS/HR Ipratropium [place] 0.5 mg 07/16/19 08:41 Atrovent IH TIDRT PRN Shortness Of Breath Metoprolol Tartrate 100 mg 07/13/19 14:00 07/16/19 14:17 Metoprolol PO 100 mg TID MARIE Administration Ondansetron HCl 4 mg 07/09/19 16:41 Zofran IV Q8H PRN Nausea And Vomiting Prednisone 30 mg 07/12/19 17:00 07/16/19 10:35 Deltasone PO 30 mg QDAY MARIE Administration Sodium Chloride 10 ml 07/09/19 22:00 07/16/19 10:36 Sodium Chloride Flush Syringe 10 Ml IV 10 ml BID MARIE Administration Sodium Chloride 10 ml 07/09/19 16:41 07/10/19 11:12 Sodium Chloride Flush Syringe 10 Ml IV 10 ml PRN PRN Administration LINE FLUSH Nutrition/Malnutrition Assess - Dietary Evaluation Nutrition/Malnutrition Findings: Nutrition Notes Start: 07/14/19 13:52 Freq: Status: Active Protocol: Document 07/16/19 12:38 LM (Rec: 07/16/19 12:39 LM [id number]) Nutrition Notes Need for Assessment generated from: LOS Initial or Follow up Brief Note Subjective/Other Information Screen for LOS. Pt with 100% intakes. Nutrition Intervention Revisit per MD consult or patient Sign Off request:
== END 2019-07-16 18:05 | disposition short-term general hospital (02) | DRG 308 ==
LOC: ED 12:33 → 4A 16:41
PROVIDERS: ADMIT Internal Medicine; ATTEND Internal Medicine
DX: I48.19 Other persistent atrial fibrillation (principal); N17.0 Acute kidney failure with tubular necrosis; I50.41 Acute combined systolic (congestive) and diastolic (congestive) heart failure; I13.0 Hypertensive heart and chronic kidney disease with heart failure and stage 1 through stage 4 chronic kidney disease, or unspecified chronic kidney disease; N02.8 Recurrent and persistent hematuria with other morphologic changes; E55.9 Vitamin D deficiency, unspecified; J44.9 Chronic obstructive pulmonary disease, unspecified; R74.0 Nonspecific elevation of levels of transaminase and lactic acid dehydrogenase [LDH]; M19.049 Primary osteoarthritis, unspecified hand; I87.2 Venous insufficiency (chronic) (peripheral); D72.829 Elevated white blood cell count, unspecified; E66.9 Obesity, unspecified; E78.2 Mixed hyperlipidemia; E07.81 Sick-euthyroid syndrome; F17.210 Nicotine dependence, cigarettes, uncomplicated; E05.90 Thyrotoxicosis, unspecified without thyrotoxic crisis or storm; N18.3 Chronic kidney disease, stage 3 (moderate); Z68.34 Body mass index [BMI] 34.0-34.9, adult; Z82.49 Family history of ischemic heart disease and other diseases of the circulatory system; Z71.6 Tobacco abuse counseling; Z79.01 Long term (current) use of anticoagulants; Z86.718 Personal history of other venous thrombosis and embolism; Z86.711 Personal history of pulmonary embolism; Z95.828 Presence of other vascular implants and grafts
CPT/HCPCS: 36415; 71045; 80048; 80053; 80074; 83735; 83880; 84436; 84439; 84443; 84479; 84480; 84481; 84484; 85007; 85014; 85018; 85025; 85027; 85049; 85520; 85610; 85730; 87040; 93005; 93010; 94640; 94760; 99406; G0378; A9270-GY; J0282; J1644; J1940; J7060; J7512